=== PATIENT | male | born 1990 | race Caucasian/White ===

== ENCOUNTER 2016-10-16 09:32 | Emergency (ER) | payer SELFPAY ==
[2016-10-16 09:36] VITALS: BP 148/81
--- NOTE | 2016-10-16 09:45 | ER Document Report ---
ED General - General Chief Complaint: Ankle Injury Stated Complaint: ANKLE INJURY TRAVEL OUTSIDE OF THE [place] IN LAST 30 DAYS: No - HPI Patient complains to provider of: right ankle pain Notes: Patient is concerning he may dislocated fracture or sprain his right ankle yesterday. Patient states he was recommending Lotrimin a step wrong states he felt a pop. Patient currently plans of pain in the lateral malleolus. Patient was able to ambulate into the ER without difficulty wearing a sneaker. Patient was able to remove his sneaker without difficulty. - Related Data Allergies/Adverse Reactions: rondex Allergy (Mild, Uncoded 08/30/15 14:20) Past Medical History - Social History Smoking Status: Unknown if Ever Smoked Family History: Arthritis, CAD, Hyperlipidemia, Hypertension, Malignancy Pulmonary Medical History: Reports: Hx Asthma, Hx Bronchitis Renal/ Medical History: Reports: Hx Kidney Stones. Denies: Hx Peritoneal Dialysis Musculoskeltal Medical History: Reports Hx Musculoskeletal Deformity, Reports Hx Musculoskeletal Trauma Psychiatric Medical History: Reports: Hx Attention Deficit Hyperactivity Disorder Traumatic Medical History: Reports: Hx Fractures - right arm, Hx Traumatic Brain Injury Past Surgical History: Reports: Hx Abdominal Surgery - HERNIA, Hx Adenoidectomy , Hx Appendectomy, Hx Inguinal Hernia - right, Hx Neurologic Surgery, Hx Orthopedic Surgery, Hx Tonsillectomy - Immunizations Immunizations up to date: No Hx Diphtheria, Pertussis, Tetanus Vaccination: Yes Review of Systems - Review of Systems Constitutional: No symptoms reported EENT: No symptoms reported Cardiovascular: No symptoms reported Respiratory: No symptoms reported Gastrointestinal: No symptoms reported Genitourinary: No symptoms reported Male Genitourinary: No symptoms reported Musculoskeletal: Other - Ankle pain Skin: No symptoms reported Hematologic/Lymphatic: No symptoms reported Neurological/Psychological: No symptoms reported Physical Exam - Vital signs Vitals: Temp Pulse Resp BP Pulse Ox 98.8 F 81 18 148/81 H 98 10/16/16 09:34 10/16/16 09:34 10/16/16 09:34 10/16/16 09:34 10/16/16 09:34 Interpretation: Normal - General General appearance: Appears well, Alert - HEENT Head: Normocephalic, Atraumatic Eyes: Normal Pupils: PERRL - Respiratory Respiratory status: No respiratory distress Chest status: Nontender Breath sounds: Normal Chest palpation: Normal - Cardiovascular Rhythm: Regular Heart sounds: Normal auscultation Murmur: No - Abdominal Inspection: Normal Distension: No distension Bowel sounds: Normal Tenderness: Nontender Organomegaly: No organomegaly - Back Back: Normal, Nontender - Extremities General upper extremity: Normal inspection, Nontender, Normal color, Normal ROM , Normal temperature General lower extremity: Nontender, Normal color, Normal ROM, Normal temperature , Normal weight bearing. No: Normal inspection - Minimal swelling to the lateral malleolus. Refill sensation are intact distally. Patient was able to remove the shoe and sock without any difficulty., Lynsey's sign - Neurological Neuro grossly intact: Yes Cognition: Normal Orientation: AAOx4 [place] Coma Scale Eye Opening: Spontaneous Hollie Coma Scale Verbal: Oriented [place] Coma Scale Motor: Obeys Commands [place] Coma Scale Total: 15 Speech: Normal Motor strength normal: LUE, RUE, LLE, RLE Sensory: Normal - Psychological Associated symptoms: Normal affect, Normal mood - Skin Skin Temperature: Warm Skin Moisture: Dry Skin Color: Normal Course - Re-evaluation Re-evalutation: 10/16/16 09:42 Patient requesting x-ray. Will perform an x-ray more likely patient has make a sprain. X-rays negative patient will be discharged with a Denis wrap for pressure support Tylenol Motrin for pain control. 10/16/16 11:50 - Vital Signs Vital signs: Temp Pulse Resp BP Pulse Ox 98.8 F 81 18 148/81 H 98 10/16/16 09:34 10/16/16 09:34 10/16/16 09:34 10/16/16 09:34 10/16/16 09:34 Discharge - Discharge Clinical Impression: Right ankle sprain Qualifiers: Encounter type: initial encounter Involved ligament of ankle: unspecified ligament Qualified Code(s): S93.401A - Sprain of unspecified ligament of right ankle, initial encounter Condition: Good Disposition: HOME, SELF-CARE Instructions: Denis Wrap ([facility]), Sprained Ankle ([facility]) Additional Instructions: Take Tylenol Motrin for pain control. Return to the ER symptoms worsen. Please continue to wear the Denis wrap for support while walking around for the next 5 days. After that he may use as needed. Ice and elevate your injured ankle Prescriptions: Ibuprofen [Motrin 600 Mg Tablet] 600 mg PO TID #30 tablet
== END 2016-10-16 11:42 | disposition home or self-care (01) ==
LOC: ER 09:32
DX: S93.401A Sprain of unspecified ligament of right ankle, initial encounter (principal); W19.XXXA Unspecified fall, initial encounter; Y93.89 Activity, other specified; J45.909 Unspecified asthma, uncomplicated; Z88.8 Allergy status to other drugs, medicaments and biological substances
CPT/HCPCS: 99283

== ENCOUNTER 2016-10-27 10:11 | Emergency (ER) | payer SELFPAY ==
[2016-10-27] MEDS ORDERED: IBUPROFEN 800 MG TABLET PO ONE (10:42)
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
[2016-10-27 11:13] VITALS: BP 118/64
== END 2016-10-27 11:08 | disposition home or self-care (01) ==
LOC: ER 10:11
DX: M54.5 Low back pain (principal); G89.29 Other chronic pain; J45.909 Unspecified asthma, uncomplicated; F17.210 Nicotine dependence, cigarettes, uncomplicated; Z71.6 Tobacco abuse counseling; Z88.8 Allergy status to other drugs, medicaments and biological substances
CPT/HCPCS: 99283

== ENCOUNTER 2017-01-15 19:58 | Emergency (ER) | payer SELFPAY ==
[2017-01-15 20:12] VITALS: BP 135/80
--- NOTE | 2017-01-15 20:40 | ER Document Report ---
ED Neck/Back Problem - General Chief Complaint: Back Pain Stated Complaint: BACK PAIN Time Seen by Provider: 01/15/17 20:23 TRAVEL OUTSIDE OF THE [place] 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 denies: Worse Quality of pain: Achy Severity: Moderate Pain Level: 3 Recent injury: No Similar symptoms previously: Yes Recently seen / treated by doctor: No Notes: -UI, SI, SA - Related Data Allergies/Adverse Reactions: rondex Allergy (Mild, Uncoded 01/15/17 20:12) Past Medical History - Social History Smoking Status: Unknown if Ever Smoked Family History: Arthritis, CAD, Hyperlipidemia, Hypertension, Malignancy Patient has suicidal ideation: No Patient has homicidal ideation: No Pulmonary Medical History: Reports: Hx Asthma, Hx Bronchitis Renal/ Medical History: Reports: Hx Kidney Stones. Denies: Hx Peritoneal Dialysis Musculoskeltal Medical History: Reports Hx Musculoskeletal Deformity, Reports Hx Musculoskeletal Trauma Psychiatric Medical History: Reports: Hx Attention Deficit Hyperactivity Disorder Traumatic Medical History: Reports: Hx Fractures - right arm, Hx Traumatic Brain Injury Past Surgical History: Reports: Hx Abdominal Surgery - HERNIA, Hx Adenoidectomy , Hx Appendectomy, Hx Inguinal Hernia - right, Hx Neurologic Surgery, Hx Orthopedic Surgery, Hx Tonsillectomy - Immunizations Immunizations up to date: No Hx Diphtheria, Pertussis, Tetanus Vaccination: Yes Review of Systems - Review of Systems Constitutional: No symptoms reported Musculoskeletal: See HPI Neurological/Psychological: See HPI -: Yes All other systems reviewed and negative Physical Exam - Vital signs Vitals: Temp Pulse Resp BP Pulse Ox 99 F 76 12 135/80 H 98 01/15/17 20:08 01/15/17 20:08 01/15/17 20:08 01/15/17 20:08 01/15/17 20:08 - General General appearance: Appears well, Alert In distress: None - Cardiovascular Pulses: Normal: Radial, Dorsalis pedis Normal capillary refill: Yes - Back Back: Normal, Tender - right paraspinous musculature. No: Deformity/step-off, CVA tenderness, Vertebra tenderness, Scars, Scoliosis, Wounds - Extremities General upper extremity: Normal inspection, Nontender, Normal color, Normal ROM , Normal strength, Normal temperature, Other General lower extremity: Normal inspection, Nontender, Normal ROM, Normal strength, Normal temperature, Normal weight bearing - Neurological Neuro grossly intact: Yes Cognition: Normal Orientation: AAOx4 [place] Coma Scale Eye Opening: Spontaneous [place] Coma Scale Verbal: Oriented [place] Coma Scale Motor: Obeys Commands Hollie Coma Scale Total: 15 Speech: Normal Cranial nerves: Normal Cerebellar coordination: Normal Motor strength normal: LUE, RUE, LLE, RLE 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 No: Weakness Sensory: Normal - Skin Skin Temperature: Warm Skin Moisture: Dry Skin Color: Normal Skin Turgor: Elastic Course - Re-evaluation Re-evalutation: 01/15/17 21:40 The patient presents with low back pain without signs of spinal cord compression , cauda equina syndrome, infection, aneurysm, or other serious etiology. The patient is neurologically intact. Given the extremely low risk of these diagnoses further testing and evaluation for these possibilities does not appear to be indicated at this time. The patient has been instructed to return if the symptoms worsen or change in any way. - Vital Signs Vital signs: Temp Pulse Resp BP Pulse Ox 99 F 76 12 135/80 H 98 01/15/17 20:08 01/15/17 20:08 01/15/17 20:08 01/15/17 20:08 01/15/17 20:08 Discharge - Discharge Clinical Impression: Low back pain Qualifiers: Chronicity: chronic Back pain laterality: right Sciatica presence: without sciatica Qualified Code(s): M54.5 - Low back pain Condition: Good Disposition: HOME, SELF-CARE Instructions: Stretching Exercises for the Back ([facility]) Additional Instructions: LOW BACK PAIN: Three out of every four people will have an episode of disabling back pain during their lifetime. Most commonly the pain is due to straining of the muscles and ligaments in the low back. Usual treatment includes: (1) Rest on a firm surface. Avoid lying on your stomach. (2) Ice pack the painful area. After a few days, gentle heat may be used intermittently to relax the area, or ice packs can be continued. (3) Medication may be needed -- muscle relaxers and antiinflammatory medicines are commonly used. (4) As the back improves, exercises are prescribed to strengthen the back and abdominal muscles. Your doctor will advise you on the proper care for your back at each stage in your recovery. You may be better in a few days -- or healing may take several weeks. If new symptoms of a "herniated disc" (radiation of pain, numbness, or tingling down the back of the leg or weakness in the leg) occur, you should be re-examined. Further testing may be necessary. MUSCLE RELAXERS: Muscle relaxing medications are usually prescribed for acute muscle spasm or injury to the neck and back. They are often combined with antiinflammatory pain medication for increased relief. You may stop the muscle relaxer when the pain and stiffness have improved. Start the medication again if spasms recur. Muscle relaxers may cause drowsiness, especially with the first dose. Do not operate machinery or drive while under the effects of the medication. Most muscle relaxers last up to 24 hours. Do not combine the medication with alcohol. ICE PACKS: Apply ice packs frequently against the painful area. Many different schedules are recommended, such as "20 minutes on, 20 minutes off" or "one hour ice, two hours rest." If you need to work, you may need to go longer between ice treatments. You should plan to have the area ice packed AT LEAST one fourth of the time. The ice should be applied over the wrap, tape, or splint, or over a layer of cloth -- not directly against the skin. Some ice bags have a built-in cloth and can be put directly on the skin. WARM PACKS: After approximately two days, apply gentle heat (such as a heating pad or hot water bottle) for about 20 to 30 minutes about every two hours -- at least four times daily. Warmth and elevation will help you make a more rapid recovery , and will ease the pain considerably. Do not use HOT heat, and never apply heat for longer than 30 minutes. The continuous heat can invisibly damage skin and muscles -- even when no burn is seen on the surface. Damaged muscles can make you MORE sore. FOLLOW-UP CARE: If you have been referred to a physician for follow-up care, call the physician s office for an appointment as you were instructed or within the next two days. If you experience worsening or a significant change in your symptoms, notify the physician immediately or return to the Emergency Department at any time for re-evaluation. Prescriptions: Cyclobenzaprine HCl [Flexeril 10 mg Tablet] 10 mg PO TIDP PRN #15 tab PRN Reason: Ibuprofen [Motrin 800 mg Tablet] 800 mg PO Q8H PRN #30 tab PRN Reason: Forms: Special Work Note, Return to Work Referrals: BARRERA SPENCER MD [COMMUNITY BASED STAFF] - Follow up as needed
[2017-01-15] MEDS ORDERED: IBUPROFEN 800 MG TABLET PO ONE (20:41)
== END 2017-01-15 20:59 | disposition home or self-care (01) ==
LOC: ER 19:58
DX: M54.5 Low back pain (principal); G89.29 Other chronic pain; J45.909 Unspecified asthma, uncomplicated; Z88.8 Allergy status to other drugs, medicaments and biological substances
CPT/HCPCS: 99283

== ENCOUNTER 2017-05-22 07:05 | Emergency (ER) | payer SELFPAY ==
[2017-05-22] MEDS ORDERED: ONDANSETRON 4 MG TAB.RAPDIS PO ONE (07:40)
--- NOTE | 2017-05-22 08:09 | ER Document Report ---
ED GI/ - General Chief Complaint: Nausea/Vomiting/Diarrhea Stated Complaint: VOMITING Time Seen by Provider: 05/22/17 07:39 Notes: Patient is a 26-year-old male presents emergency department complaining of diarrhea for 1 week. Admits to dizziness and weakness this morning with one episode of emesis. He denies reading anything abnormal over the past 10 days. Denies any raw chicken. Denies any recent antibiotic use or hospital admission. Otherwise he denies any abdominal pain, fever, chills, headache, bright red blood per rectum, hematemesis, coffee-ground emesis, dark tarry stools. Denies any previous history of reflux, irritable bowel disease, Crohn's , ulcerative colitis. Previous appendectomy. He did not receive a flu vaccine this year. Patient works for [employer]. Current smoker. Admits to social alcohol on the weekends. Denies any drug use. TRAVEL OUTSIDE OF THE [place] IN LAST 30 DAYS: No - Related Data Allergies/Adverse Reactions: rondex Allergy (Mild, Uncoded 04/02/17 11:41) Past Medical History - Social History Smoking Status: Current Every Day Smoker Family History: Arthritis, CAD, Hyperlipidemia, Hypertension, Malignancy Pulmonary Medical History: Reports: Hx Asthma, Hx Bronchitis Renal/ Medical History: Reports: Hx Kidney Stones. Denies: Hx Peritoneal Dialysis Musculoskeltal Medical History: Reports Hx Musculoskeletal Deformity, Reports Hx Musculoskeletal Trauma Psychiatric Medical History: Reports: Hx Attention Deficit Hyperactivity Disorder Traumatic Medical History: Reports: Hx Fractures - right arm, Hx Traumatic Brain Injury Past Surgical History: Reports: Hx Abdominal Surgery - HERNIA, Hx Adenoidectomy , Hx Appendectomy, Hx Inguinal Hernia - right, Hx Neurologic Surgery, Hx Orthopedic Surgery, Hx Tonsillectomy - Immunizations Immunizations up to date: No Hx Diphtheria, Pertussis, Tetanus Vaccination: Yes Review of Systems - Review of Systems Constitutional: No symptoms reported EENT: No symptoms reported Cardiovascular: No symptoms reported Respiratory: No symptoms reported Gastrointestinal: See HPI Genitourinary: No symptoms reported -: Yes All other systems reviewed and negative Physical Exam - Vital signs Vitals: Temp Pulse Resp BP Pulse Ox 97.8 F 77 14 128/78 H 98 05/22/17 07:34 05/22/17 07:34 05/22/17 07:34 05/22/17 07:34 05/22/17 07:34 - Notes Notes: PHYSICAL EXAM GENERAL: Alert, interacts well. ENT: Oral mucosa moist, tongue midline. NECK: Full range of motion. Supple. Trachea midline. LUNGS: Clear to auscultation bilaterally, no wheezes, rales, or rhonchi. No respiratory distress. HEART: Regular rate and rhythm. No murmurs, gallops, or rubs. ABDOMEN: Soft, nondistended, nontender. No guarding, rebound, or rigidity.. Bowel sounds present in all 4 quadrants. EXTREMITIES: Moves all 4 extremities spontaneously. No edema, radial and dorsalis pedis pulses 2/4 bilaterally. No cyanosis. NEUROLOGICAL: Alert and oriented x4. Normal speech. PSYCH: Normal affect, normal mood. SKIN: Warm, dry, normal turgor. No rashes or lesions noted. Course - Re-evaluation Re-evalutation: 05/22/17 09:51 Patient is a 26-year-old male who is hemodynamically stable, no acute distress and afebrile. Presentation is consistent with gastrointestinal virus. Low clinical suspicion for any food poisoning given the length of symptoms, concern for C. difficile given negative past medical history with risk factors. Patient was not able to supply a sample for us in the emergency department. Flu was negative. Labs negative for any evidence of dehydration, electrolyte abnormalities, elevated liver panel, acute renal failure, leukocytosis or anemia. Patient tolerating p.o. without any difficulty and benign physical exam. Stable for discharge home. - Vital Signs Vital signs: Temp Pulse Resp BP Pulse Ox 98 F 74 17 125/70 97 05/22/17 10:38 05/22/17 10:38 05/22/17 10:38 05/22/17 10:38 05/22/17 10:38 - Laboratory Result Diagrams: 05/22/17 08:15 05/22/17 08:15 Laboratory results interpreted by me: 05/22/17 08:15 Plt Count 110 L Discharge - Discharge Clinical Impression: Diarrhea Qualifiers: Diarrhea type: unspecified type Qualified Code(s): R19.7 - Diarrhea, unspecified Condition: Good Disposition: HOME, SELF-CARE Additional Instructions: Your symptoms are likely due to a viral illness and should resolve in the next several days. You can take [id number] loperamide also known as Imodium as needed for diarrhea per box instructions. Continue to stay hydrated with plenty of solution such as Gatorade or Pedialyte. You are being prescribed Zofran to take as needed for nausea and vomiting. Please return if you develop severe abdominal pain, pass out, become unable to tolerate any oral fluids for 12 more hours, or any other symptoms that are concerning to you. Prescriptions: Ondansetron HCl [Zofran 4 mg Tablet] 1 - 2 tab PO Q4H PRN #15 tablet PRN Reason: Forms: Return to Work
[2017-05-22 08:42] LABS: ABSOLUTE EOSINOPHILS # (AUTO) 0.1 10^3/uL (0.0-0.6); ABSOLUTE LYMPHOCYTES (AUTO) 2.3 10^3/uL (0.5-4.7); ABSOLUTE MONOCYTES (AUTO) 0.4 10^3/uL (0.1-1.4); ABSOLUTE NEUT (AUTO) 3.6 10^3/uL (1.7-8.2); BASOPHILS % (AUTO) 0.7 % (0-2); EOSINOPHILS % (AUTO) 1.5 % (0-6); HEMATOCRIT 43.9 % (37.9-51.0); HEMOGLOBIN 15.4 g/dL (13.5-17.0); HGB HCT DIFFERENCE 2.3; LYMPHOCYTES % (AUTO) 35.6 % (13-45); MEAN CORPUSCULAR HEMOGLOBIN 31.7 pg (27.0-33.4); MEAN CORPUSCULAR VOLUME 91 fl (80-97); RED BLOOD COUNT 4.84 10^6/uL (4.35-5.55); RED CELL DISTRIBUTION WIDTH 13.2 % (11.5-14.0); SEGMENTED NEUTROPHILS % (AUTO) 56.2 % (42-78); WHITE BLOOD COUNT 6.4 10^3/uL (4.0-10.5)
[2017-05-22 08:54] LABS: BLOOD UREA NITROGEN 8 mg/dL (7-20); CALCIUM 9.3 mg/dL (8.4-10.2); CREATININE RESULT 0.75 mg/dL (0.52-1.25); GLUCOSE 102 mg/dL (75-110)
[2017-05-22 08:55] LABS: ANION GAP 11 (5-19); CARBON DIOXIDE 25 mmol/L (22-30); CHLORIDE 106 mmol/L (98-107); POTASSIUM 4.6 mmol/L (3.6-5.0)
[2017-05-22 09:22] LABS: APPEARANCE,URINE CLEAR; BILIRUBIN,URINE NEGATIVE (NEGATIVE); GLUCOSE, URINE NEGATIVE (NEGATIVE); KETONES,URINE NEGATIVE (NEGATIVE); LEUKOCYTE ESTERASE,URINE NEGATIVE (NEGATIVE); NITRITE,URINE NEGATIVE (NEGATIVE); PROTEIN,URINE NEGATIVE (NEGATIVE); URINE SPECIFIC GRAVITY 1.006; UROBILINOGEN,URINE NEGATIVE mg/dL (<2.0)
[2017-05-22 10:39] VITALS: BP 125/70
== END 2017-05-22 10:30 | disposition home or self-care (01) ==
LOC: ER 07:05
DX: R19.7 Diarrhea, unspecified (principal); R42 Dizziness and giddiness; R53.1 Weakness; R11.2 Nausea with vomiting, unspecified; F17.200 Nicotine dependence, unspecified, uncomplicated; J45.909 Unspecified asthma, uncomplicated; Z88.8 Allergy status to other drugs, medicaments and biological substances
CPT/HCPCS: 99283; 36415; 83690; 85025; 80048; 81001; 87804; S0119

== ENCOUNTER 2017-08-22 09:48 | Emergency (ER) | payer SELFPAY ==
--- NOTE | 2017-08-22 10:09 | ER Document Report ---
ED Extremity Problem, Lower - General Chief Complaint: Knee Pain Stated Complaint: KNEE PAIN Time Seen by Provider: 08/22/17 10:00 Information source: Patient Notes: 26-year-old male who states around 1 month ago he was stepping off a truck and he twisted his left foot causing him to fall on his right knee. He states he has had some intermittent pain to the right knee since that time. He denies any obvious displacement during the initial incident. He denies any weakness or numbness distally to the knee. Patient states that the pain mostly is exacerbated when he bumps his right knee into another object. TRAVEL OUTSIDE OF THE [place] IN LAST 30 DAYS: No - HPI Patient complains to provider of: Pain Location: Knee Occurred: Other - See above Where: Outdoors Onset/Duration: Sudden Quality of pain: Achy Severity: Mild Pain Level: 1 Context: Other - See above Recent injury: Yes Associated symptoms: Other - See above Exacerbated by: Other - See above Relieved by: Nothing - Related Data Allergies/Adverse Reactions: rondex Allergy (Mild, Uncoded 04/02/17 11:41) Past Medical History - Social History Smoking Status: Unknown if Ever Smoked Cigarette use (# per day): No Chew tobacco use (# tins/day): No Smoking Education Provided: No Frequency of alcohol use: Rare Drug Abuse: None Family History: Arthritis, CAD, Hyperlipidemia, Hypertension, Malignancy Pulmonary Medical History: Reports: Hx Asthma, Hx Bronchitis Renal/ Medical History: Reports: Hx Kidney Stones. Denies: Hx Peritoneal Dialysis Musculoskeltal Medical History: Reports Hx Musculoskeletal Deformity, Reports Hx Musculoskeletal Trauma Psychiatric Medical History: Reports: Hx Attention Deficit Hyperactivity Disorder Traumatic Medical History: Reports: Hx Fractures - right arm, Hx Traumatic Brain Injury Past Surgical History: Reports: Hx Abdominal Surgery - HERNIA, Hx Adenoidectomy , Hx Appendectomy, Hx Inguinal Hernia - right, Hx Neurologic Surgery, Hx Orthopedic Surgery, Hx Tonsillectomy - Immunizations Immunizations up to date: No Hx Diphtheria, Pertussis, Tetanus Vaccination: Yes Physical Exam - Vital signs Vitals: Temp Pulse Resp BP Pulse Ox 97.6 F 67 16 119/77 99 08/22/17 09:51 08/22/17 09:51 08/22/17 09:51 08/22/17 09:51 08/22/17 09:51 Notes: Reviewed vital signs and nursing note as charted by RN. CONSTITUTIONAL: Alert and oriented and responds appropriately to questions. Well -appearing; well-nourished EXT: Normal ROM of the right knee. No obvious swelling or discoloration. No obvious ligamentous laxity. No clicking with full range of motion. Neurovascularly intact distally Course - Re-evaluation Re-evalutation: 08/22/17 10:09 Given the history and physical we will obtain an x-ray of the right knee. If this is unremarkable for an acute fracture we will discharge the patient home with strict return precautions and orthopedic follow-up for possible outpatient MRI/reevaluation. I do believe an acute knee dislocation or intra-articular infection to be extraordinarily unlikely. 08/22/17 10:57 X-ray as recorded. Patient has refused crutches. I would discharge the patient home with strict return precautions and follow-up as an outpatient with the orthopedic surgery team. - Vital Signs Vital signs: Temp Pulse Resp BP Pulse Ox 97.6 F 67 16 119/77 99 08/22/17 09:51 08/22/17 09:51 08/22/17 09:51 08/22/17 09:51 08/22/17 09:51 Discharge - Discharge Clinical Impression: Right knee pain Qualifiers: Chronicity: acute Qualified Code(s): M25.561 - Pain in right knee Condition: Good Disposition: HOME, SELF-CARE Additional Instructions: Come back immediately for any increased pain, swelling, calf pain or leg swelling, or any other acute problems. Please follow-up with orthopedics as we have discussed. Referrals: ELLA BLACKMAN DO [ACTIVE STAFF] - Follow up as needed
--- NOTE | 2017-08-22 10:52 | RADIOLOGY REPORT (SQ) ---
EXAM DESCRIPTION: KNEE RIGHT 4 VIEWS COMPLETED DATE/TIME: 08/22/2017 10:38 am REASON FOR STUDY: 42, right knee COMPARISON: None. NUMBER OF VIEWS: Four views. TECHNIQUE: AP, lateral, and both oblique radiographic images acquired of the right knee. LIMITATIONS: None. FINDINGS: MINERALIZATION: Normal. BONES: No acute fracture or dislocation. No worrisome bone lesions. No significant osteophytes. JOINT: No effusion. No chondrocalcinosis. OTHER: No other significant finding. IMPRESSION: NEGATIVE STUDY OF THE RIGHT KNEE. NO RADIOGRAPHIC EVIDENCE OF ACUTE INJURY. NO EXPLANATI ON FOR PAIN. TECHNICAL DOCUMENTATION: JOB ID: [id number] [employer]- All Rights Reserved Reading location - IP/workstation name: [email or web address]
[2017-08-22 11:13] VITALS: BP 120/76
== END 2017-08-22 11:05 | disposition home or self-care (01) ==
LOC: ER 09:48
DX: M25.561 Pain in right knee (principal); W17.89XA Other fall from one level to another, initial encounter; Y93.89 Activity, other specified
CPT/HCPCS: 99283

== ENCOUNTER 2017-08-23 08:58 | Emergency (ER) | payer SELFPAY ==
[2017-08-23] MEDS ORDERED: ONDANSETRON 4 MG TAB.RAPDIS PO ONE (09:28)
--- NOTE | 2017-08-23 09:33 | ER Document Report ---
ED GI/ - General Chief Complaint: Possible Kidney Stone Stated Complaint: FLANK PAIN Time Seen by Provider: 08/23/17 09:19 Notes: The patient is a 26-year-old male, past medical history prior kidney stones, appendectomy, presents with severe left flank pain radiating into his groin earlier this morning that felt similar to his prior kidney stones. When he arrived to the ER, he urinated and felt the pain immediately go away. He feels much better and is having no pain at this time. He is only complaining of nausea. Patient is usually always able to pass his kidney stones. He denies fevers, hematuria, vomiting, diarrhea, constipation or rash. TRAVEL OUTSIDE OF THE [place] IN LAST 30 DAYS: No - Related Data Allergies/Adverse Reactions: rondex Allergy (Mild, Uncoded 04/02/17 11:41) Past Medical History - General Information source: Patient - Social History Smoking Status: Current Every Day Smoker Family History: Arthritis, CAD, Hyperlipidemia, Hypertension, Malignancy Pulmonary Medical History: Reports: Hx Asthma, Hx Bronchitis Renal/ Medical History: Reports: Hx Kidney Stones. Denies: Hx Peritoneal Dialysis Musculoskeltal Medical History: Reports Hx Musculoskeletal Deformity, Reports Hx Musculoskeletal Trauma Psychiatric Medical History: Reports: Hx Attention Deficit Hyperactivity Disorder Traumatic Medical History: Reports: Hx Fractures - right arm, Hx Traumatic Brain Injury Past Surgical History: Reports: Hx Abdominal Surgery - HERNIA, Hx Adenoidectomy , Hx Appendectomy, Hx Inguinal Hernia - right, Hx Neurologic Surgery, Hx Orthopedic Surgery, Hx Tonsillectomy - Immunizations Immunizations up to date: No Hx Diphtheria, Pertussis, Tetanus Vaccination: Yes Review of Systems - Review of Systems Notes: REVIEW OF SYSTEMS: CONSTITUTIONAL: -fevers, -chills EENT: -eye pain, -difficulty swallowing, -nasal congestion CARDIOVASCULAR: -chest pain, -syncope. RESPIRATORY: -cough, -SOB GASTROINTESTINAL: -abdominal pain, -nausea, -vomiting, -diarrhea GENITOURINARY: -dysuria, -hematuria MUSCULOSKELETAL: +left flank pain, -neck pain SKIN: -rash or skin lesions. HEMATOLOGIC: -easy bruising or bleeding. LYMPHATIC: -swollen, enlarged glands. NEUROLOGICAL: -altered mental status or loss of consciousness, -headache, - neurologic symptoms PSYCHIATRIC: -anxiety, -depression. ALL OTHER SYSTEMS REVIEWED AND NEGATIVE. Physical Exam - Vital signs Vitals: Temp Pulse Resp BP Pulse Ox 97.6 F 76 16 128/87 H 98 08/23/17 09:09 08/23/17 09:09 08/23/17 09:09 08/23/17 09:09 08/23/17 09:09 - Notes Notes: PHYSICAL EXAMINATION: GENERAL: Well-appearing, well-nourished and in no acute distress. HEAD: Atraumatic, normocephalic. EYES: Pupils equal round and reactive to light, extraocular movements intact, sclera anicteric, conjunctiva are normal. ENT: nares patent, oropharynx clear without exudates. Moist mucous membranes. NECK: Normal range of motion, supple without lymphadenopathy LUNGS: Breath sounds clear to auscultation bilaterally and equal. No wheezes rales or rhonchi. HEART: Regular rate and rhythm without murmurs ABDOMEN: Soft, nontender, normoactive bowel sounds. No guarding, no rebound. No masses appreciated. EXTREMITIES: Normal range of motion, no pitting or edema. No cyanosis. NEUROLOGICAL: Cranial nerves grossly intact. Normal speech, normal gait. Normal sensory and motor exams. PSYCH: Normal mood, normal affect. SKIN: Warm, Dry, normal turgor, no rashes or lesions noted. Course - Re-evaluation Re-evalutation: Patient with left flank pain that suddenly resolved when he arrived to the ED. Bedside ultrasound does not show hydronephrosis. He has a 2 mm stne in his bladder. No stone visualized in kidneys. Urinalysis shows no evidence of a UTI. The kidney stone passed into his bladder and told him that it may be painful when he passes it through his urethra. Given very strict return precautions and he understands. - Vital Signs Vital signs: Temp Pulse Resp BP Pulse Ox 97.6 F 76 16 128/87 H 98 08/23/17 09:09 08/23/17 09:09 08/23/17 09:09 08/23/17 09:09 08/23/17 09:09 Discharge - Discharge Clinical Impression: Renal colic on left side Condition: Stable Disposition: HOME, SELF-CARE Additional Instructions: KIDNEY STONE: You are passing or have passed a kidney stone. These stones are usually due to increased calcium or uric acid concentrations in your urine. Stones within the kidney itself are not painful. The pain occurs as the stone leaves the kidney to pass down the long tube, called the ureter, leading to the bladder. If the stone is small, it will usually pass by itself. Most patients can pass the stone at home. You will usually receive medications for pain, nausea or vomiting, and sometimes a medication to assist in passing the kidney stone. However, if the pain is very severe or if vomiting prevents you from taking oral pain medications, you may need to return for further treatment. Drink three or four quarts of fluids per day. You will be given pain medication (if needed) and urine strainers. Strain all your urine to see if the stone passes. If your doctor has asked you to bring the stone in for analysis, return with the stone once it has passed. Return if pain or vomiting become severe, if you develop a high fever, if you are unable to pass your urine, or if other unusual symptoms occur. ANTINAUSEA MEDICATION: You have been given a medication to suppress nausea and vomiting. This type of medication can be given as a shot, pill, or suppository. It will usually last for many hours. Pills and shots usually last six to eight hours, suppositories last about 12 hours. For the typical illness, only one or two doses of the medication may be necessary. Mild lightheadedness may occur. This type of medicine can cause drowsiness. Do not drive or operate dangerous machinery while under its influence. Do not mix with alcohol. See your doctor at once if you have muscle spasms or tightness, or uncontrollable motions (particularly of the neck, mouth, or jaw). Persistent vomiting or severe lightheadedness should also be evaluated by the physician. FOLLOW-UP CARE: If you have been referred to a physician for follow-up care, call the physician s office for an appointment as you were instructed or within the next two days. If you experience worsening or a significant change in your symptoms, notify the physician immediately or return to the Emergency Department at any time for re-evaluation. Prescriptions: Ondansetron [Zofran Odt 4 mg Tablet] 1 - 2 tab PO Q4H PRN #10 tab.rapdis PRN Reason: For Nausea/Vomiting Referrals: [facility] [Provider Group] - Follow up as needed
[2017-08-23] MEDS ORDERED: KETOROLAC TROMETHAMINE 60 MG/2 ML SDV IM ONE (09:36)
[2017-08-23 09:57] LABS: APPEARANCE,URINE SLIGHTLY-CLOUDY; BILIRUBIN,URINE NEGATIVE (NEGATIVE); COLOR,URINE YELLOW; GLUCOSE, URINE NEGATIVE (NEGATIVE); KETONES,URINE NEGATIVE (NEGATIVE); LEUKOCYTE ESTERASE,URINE NEGATIVE (NEGATIVE); NITRITE,URINE NEGATIVE (NEGATIVE); PROTEIN,URINE NEGATIVE (NEGATIVE); URINE SPECIFIC GRAVITY 1.018; UROBILINOGEN,URINE NEGATIVE mg/dL (<2.0)
[2017-08-23 10:49] VITALS: BP 128/89
== END 2017-08-23 10:47 | disposition home or self-care (01) ==
LOC: ER 08:58
DX: N21.0 Calculus in bladder (principal); R11.0 Nausea; F17.200 Nicotine dependence, unspecified, uncomplicated; J45.909 Unspecified asthma, uncomplicated; Z90.49 Acquired absence of other specified parts of digestive tract
CPT/HCPCS: 99284; 96372; 81001; J1885; S0119

== ENCOUNTER 2017-09-25 07:50 | Emergency (ER) | payer SELFPAY ==
[2017-09-25 07:58] VITALS: BP 125/63
[2017-09-25] MEDS ORDERED: ONDANSETRON 4 MG TAB.RAPDIS PO ONE (08:22)
[2017-09-25] MEDS ORDERED: FAMOTIDINE 20 MG TABLET PO ONE (08:39)
[2017-09-25] MEDS ORDERED: LOPERAMIDE HCL 2 MG CAPSULE PO ONE (08:40)
--- NOTE | 2017-09-25 08:41 | ER Document Report ---
ED General - General Chief Complaint: Vomiting Stated Complaint: VOMITING Time Seen by Provider: 09/25/17 08:07 Mode of Arrival: Ambulatory Information source: Patient Notes: 26-year-old male with no reported past medical history presents with complaint of nausea, vomiting, diarrhea. Patient states that symptoms started yesterday. He states that he has had 3 episodes of nonbilious nonbloody vomiting this morning and 3 episodes of nonbloody diarrhea. Patient denies any fever, chills , chest pain, shortness of breath, abdominal pain, back pain, dysuria, hematuria , rash. He denies sick contacts. TRAVEL OUTSIDE OF THE [place] IN LAST 30 DAYS: No - HPI Onset: Yesterday Onset/Duration: Sudden Quality of pain: No pain Associated symptoms: Diarrhea, Nausea, Vomiting Exacerbated by: Denies Relieved by: Denies Similar symptoms previously: Yes Recently seen / treated by doctor: No - Related Data Allergies/Adverse Reactions: rondex Allergy (Mild, Uncoded 04/02/17 11:41) Past Medical History - General Information source: Patient - Social History Smoking Status: Current Every Day Smoker Frequency of alcohol use: Occasional Drug Abuse: None Lives with: Spouse/Significant other Family History: Arthritis, CAD, Hyperlipidemia, Hypertension, Malignancy Patient has suicidal ideation: No Patient has homicidal ideation: No Pulmonary Medical History: Reports: Hx Asthma, Hx Bronchitis Renal/ Medical History: Reports: Hx Kidney Stones. Denies: Hx Peritoneal Dialysis Musculoskeltal Medical History: Reports Hx Musculoskeletal Deformity, Reports Hx Musculoskeletal Trauma Psychiatric Medical History: Reports: Hx Attention Deficit Hyperactivity Disorder Traumatic Medical History: Reports: Hx Fractures - right arm, Hx Traumatic Brain Injury Past Surgical History: Reports: Hx Abdominal Surgery - HERNIA, Hx Adenoidectomy , Hx Appendectomy, Hx Inguinal Hernia - right, Hx Neurologic Surgery, Hx Orthopedic Surgery, Hx Tonsillectomy - Immunizations Immunizations up to date: No Hx Diphtheria, Pertussis, Tetanus Vaccination: Yes Review of Systems - Review of Systems Notes: Patient denies any fever, chills, chest pain, shortness of breath, abdominal pain, back pain, dysuria, hematuria, rash. He denies sick contacts. Metastases to nausea, vomiting, diarrhea. Physical Exam - Vital signs Vitals: Temp Pulse Resp BP Pulse Ox 97.9 F 73 18 125/63 98 09/25/17 07:57 09/25/17 07:57 09/25/17 07:57 09/25/17 07:57 09/25/17 07:57 Interpretation: Normal. No: Hypotensive, Hypertensive, Hypoxic, Tachypneic, Febrile - Notes Notes: PHYSICAL EXAMINATION: GENERAL: Well-appearing, well-nourished and in no acute distress. HEAD: Atraumatic, normocephalic. EYES: Pupils equal round and reactive to light, extraocular movements intact, sclera anicteric, conjunctiva are normal. ENT: Nares patent, oropharynx clear without exudates. Moist mucous membranes. NECK: Normal range of motion, supple without lymphadenopathy LUNGS: Breath sounds clear to auscultation bilaterally and equal. No wheezes rales or rhonchi. HEART: Regular rate and rhythm without murmurs ABDOMEN: Soft, nontender, nondistended abdomen. No guarding, no rebound. No masses appreciated. Musculoskeletal: Normal range of motion, no pitting or edema. No cyanosis. NEUROLOGICAL: Cranial nerves grossly intact. Normal speech, normal gait. Normal sensory, motor exams PSYCH: Normal mood, normal affect. SKIN: Warm, Dry, normal turgor, no rashes or lesions noted. Course - Re-evaluation Re-evalutation: 09/25/17 10:39 26-year-old male presents with complaint of 1 day of nausea, vomiting and diarrhea. He denies any abdominal pain. Vital signs stable upon arrival. Patient does not appear toxic or dehydrated. He was provided Zofran and Pepcid and was able to tolerate fluids prior to discharge. Patient was discharged home in stable condition with recommendation to follow-up with his primary care physician as needed or return if vomiting persists and he is unable to tolerate fluids. - Vital Signs Vital signs: Temp Pulse Resp BP Pulse Ox 97.9 F 73 18 125/63 98 09/25/17 07:57 09/25/17 07:57 09/25/17 07:57 09/25/17 07:57 09/25/17 07:57 Discharge - Discharge Clinical Impression: Nausea vomiting and diarrhea Condition: Good Disposition: HOME, SELF-CARE Instructions: Antinausea Medication ([facility]), Diarrhea, Nonspecific ([facility]), Vomiting ([facility]) Forms: Smoking Cessation Education, Return to Work Referrals: CHERRY HERRERA MD [ACTIVE STAFF] - Follow up as needed
== END 2017-09-25 09:15 | disposition home or self-care (01) ==
LOC: ER 07:50
DX: R11.2 Nausea with vomiting, unspecified (principal); R19.7 Diarrhea, unspecified; J45.909 Unspecified asthma, uncomplicated; F17.200 Nicotine dependence, unspecified, uncomplicated; Z88.8 Allergy status to other drugs, medicaments and biological substances
CPT/HCPCS: 99283; S0119

== ENCOUNTER 2017-10-24 09:51 | Emergency (ER) | payer OTHER ==
[2017-10-24 10:04] VITALS: BP 122/69
[2017-10-24] MEDS ORDERED: ONDANSETRON 4 MG TAB.RAPDIS PO ONE (10:14)
--- NOTE | 2017-10-24 10:20 | ER Document Report ---
ED General - General Chief Complaint: Nausea/Vomiting/Diarrhea Stated Complaint: STOMACH PAIN Time Seen by Provider: 10/24/17 10:07 Notes: 26-year-old male here with complaints of nausea vomiting diarrhea that started this morning. He has had some abdominal cramping. His kids are sick with the same thing. He has not tried anything for the symptoms. Denies fevers chills dysuria hematuria frequency. He does not remember eating anything that may have made him sick with the symptoms. TRAVEL OUTSIDE OF THE [place] IN LAST 30 DAYS: No - Related Data Allergies/Adverse Reactions: rondex Allergy (Mild, Uncoded 10/24/17 09:56) Past Medical History - Social History Smoking Status: Unknown if Ever Smoked Family History: Arthritis, CAD, Hyperlipidemia, Hypertension, Malignancy Pulmonary Medical History: Reports: Hx Asthma, Hx Bronchitis Renal/ Medical History: Reports: Hx Kidney Stones. Denies: Hx Peritoneal Dialysis Musculoskeltal Medical History: Reports Hx Musculoskeletal Deformity, Reports Hx Musculoskeletal Trauma Psychiatric Medical History: Reports: Hx Attention Deficit Hyperactivity Disorder Traumatic Medical History: Reports: Hx Fractures - right arm, Hx Traumatic Brain Injury Past Surgical History: Reports: Hx Abdominal Surgery - HERNIA, Hx Adenoidectomy , Hx Appendectomy, Hx Inguinal Hernia - right, Hx Neurologic Surgery, Hx Orthopedic Surgery, Hx Tonsillectomy - Immunizations Immunizations up to date: No Hx Diphtheria, Pertussis, Tetanus Vaccination: Yes Review of Systems - Review of Systems Notes: See history of present illness for pertinent positive review of systems; otherwise all review of systems have been reviewed and are negative Physical Exam - Vital signs Vitals: Temp Pulse Resp BP Pulse Ox 99.0 F 73 22 H 122/69 96 10/24/17 10:02 10/24/17 10:02 10/24/17 10:02 10/24/17 10:02 10/24/17 10:02 - Notes Notes: PHYSICAL EXAMINATION: GENERAL: Well-appearing and in no acute distress. HEAD: Atraumatic, normocephalic. EYES: Pupils equal round and reactive to light, extraocular movements intact, sclera anicteric, conjunctiva are normal. ENT: nares patent, oropharynx clear without exudates. Moist mucous membranes. NECK: Normal range of motion, supple without lymphadenopathy LUNGS: CTAB and equal. No wheezes rales or rhonchi. HEART: Regular rate and rhythm without murmurs ABDOMEN: Soft, no tenderness. No facial grimacing/wincing upon palpation. No guarding, no rebound. EXTREMITIES: Normal range of motion, no pitting edema. No cyanosis. NEUROLOGICAL: Cranial nerves grossly intact. Normal sensory/motor exams. PSYCH: Normal mood, normal affect. SKIN: Warm, Dry, normal turgor, no rashes or lesions noted Course - Re-evaluation Re-evalutation: 10/24/17 10:24 MEDICAL DECISION MAKING: Concern for gastrointestinal infection, most likely viral Dose of Zofran here and patient states he already has plenty of Zofran at home from his kids being sick I will give him a prescription for Phenergan suppositories as a backup plan Instructed patient on fever control with Tylenol and/or (if applicable) Motrin Also discussed keeping hydrated with water or Gatorade/Pedialyte Instructed follow-up PCP next day or few Patient understands and agrees to the plan of care - Vital Signs Vital signs: Temp Pulse Resp BP Pulse Ox 99.0 F 73 22 H 122/69 96 10/24/17 10:02 10/24/17 10:02 10/24/17 10:02 10/24/17 10:02 10/24/17 10:02 Discharge - Discharge Clinical Impression: Nausea vomiting and diarrhea Condition: Good Disposition: HOME, SELF-CARE Additional Instructions: You were seen in the emergency department at [facility]. You likely have a gastrointestinal infection, most likely viral. Use Motrin and/or Tylenol for fever control. Use the Zofran you have at home for nausea (this will not make you sleepy). If this is not working, use the Phenergan suppositories I have prescribed (this WILL make you sleepy). Stay hydrated. Please followup with your primary physician in the next few days for further management/evaluation. Please return to the emergency department for worsening of symptoms or any symptom that you deem to be concerning or life-threatening. Thank you for allowing us to be part of your care. This is your school/work note for your Emergency Department evaluation today. Prescriptions: Promethazine HCl [Phenergan 25 mg Supp.rect] 1 supp UT Q6H #12 supp.rect
== END 2017-10-24 10:19 | disposition home or self-care (01) ==
LOC: ER 09:51
DX: R11.2 Nausea with vomiting, unspecified (principal); R19.7 Diarrhea, unspecified
CPT/HCPCS: 99283; S0119

== ENCOUNTER 2017-11-03 06:16 | Emergency (ER) | payer OTHER ==
[2017-11-03 06:23] VITALS: BP 121/79
--- NOTE | 2017-11-03 06:48 | RADIOLOGY REPORT (SQ) ---
EXAM DESCRIPTION: 4 views of the right knee CLINICAL HISTORY: PAIN COMPARISON: None. FINDINGS: 4 views of the right knee. No acute fracture or dislocation. Normal osseous mineralization. No joint effusion. IMPRESSION: No acute fracture or dislocation.
--- NOTE | 2017-11-03 07:24 | ER Document Report ---
HPI - HPI Patient complains to provider of: right knee Onset: This morning Onset/Duration: Sudden Quality of pain: Achy Severity: Severe Pain Level: 4 Context: Patient presents to the emergency department with complaints of right knee pain. Patient reports he rolled his knee this morning. Reports he has injured his knee in the past but denies surgery. Denies pain when walking. Declines pain medication. Reports he has been told he needs to have MRI of the knee. No reports of any other symptoms such as fever nausea vomiting diarrhea. 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 Denies: Hx Peritoneal Dialysis Musculoskeltal Medical History: Reports Hx Musculoskeletal Deformity, Reports Hx Musculoskeletal Trauma Psychiatric Medical History: Reports: Hx Attention Deficit Hyperactivity Disorder Traumatic Medical History: Reports: Hx Fractures - right arm, Hx Traumatic Brain Injury Past Surgical History: Reports: Hx Abdominal Surgery - HERNIA, Hx Adenoidectomy , Hx Appendectomy, Hx Inguinal Hernia - right, Hx Neurologic Surgery, Hx Orthopedic Surgery, Hx Tonsillectomy - Immunizations Immunizations up to date: No Hx Diphtheria, Pertussis, Tetanus Vaccination: Yes Vertical Provider Document - CONSTITUTIONAL Agree With Documented VS: Yes Exam Limitations: No Limitations General Appearance: WD/WN, No Apparent Distress - INFECTION CONTROL TRAVEL OUTSIDE OF THE [place] IN LAST 30 DAYS: No - HEENT HEENT: Atraumatic, Normocephalic - NECK Neck: Supple - RESPIRATORY Respiratory: No Respiratory Distress - CARDIOVASCULAR Cardiovascular: Regular Rate - MUSCULOSKELETAL/EXTREMETIES Musculoskeletal/Extremeties: MAEW, FROM, Non-Tender - Patient denies pain to touch. Patient stands up extends/ flexes knee without problems. No erythema no obvious deformity no swelling noted. Declines crutches, declines pain medication - NEURO Level of Consciousness: Awake, Alert, Appropriate Motor/Sensory: No Motor Deficit - DERM Integumentary: Warm, Dry Course - Re-evaluation Re-evalutation: 11/03/17 07:30 Patient reports he has been connected with the primary care provider by this facility. Patient reports he just has not followed up. He declines pain medication. Declines splint or crutches. Instructed on rest ice elevation and ibuprofen for pain . Patient was instructed to return to the emergency department for any further concerns. - Vital Signs Vital signs: Temp Pulse Resp BP Pulse Ox 97.8 F 84 17 121/79 96 11/03/17 06:17 11/03/17 06:17 11/03/17 06:17 11/03/17 06:17 11/03/17 06:17 - Diagnostic Test Radiology reviewed: Image reviewed, Reports reviewed - Diagnostic report text EXAM DESCRIPTION: 4 views of the right knee CLINICAL HISTORY: PAIN COMPARISON: None. FINDINGS: 4 views of the right knee. No acute fracture or dislocation. Normal osseous mineralization. No joint effusion. IMPRESSION: No acute fracture or dislocation. Dictated by: IVANIA GIRALDO DO Discharge - Discharge Clinical Impression: Knee pain, right Qualifiers: Chronicity: acute Qualified Code(s): M25.561 - Pain in right knee Condition: Stable Disposition: HOME, SELF-CARE Instructions: Use of [id number] Ibuprofen ([facility]), Ice & Elevation ([facility]) Additional Instructions: *You have been evaluated for an right knee pain *Rest/Ice/Elevate your knee *Follow up with orthopedics for full evaluation within one week- call for an appointment *Take ibuprofen as indicated *Return to ED for worsening condition, changes, needs Forms: Return to Work
== END 2017-11-03 07:47 | disposition home or self-care (01) ==
LOC: ER 06:16
DX: M25.561 Pain in right knee (principal); J45.909 Unspecified asthma, uncomplicated
CPT/HCPCS: 99283

== ENCOUNTER 2017-11-06 09:31 | Emergency (ER) | payer OTHER ==
--- NOTE | 2017-11-06 09:56 | ER Document Report ---
ED General - General Chief Complaint: Abdominal Pain Stated Complaint: RIGHT SIDE PAIN Time Seen by Provider: 11/06/17 09:47 TRAVEL OUTSIDE OF THE [place] IN LAST 30 DAYS: No - HPI Notes: Pleasant 27-year-old man presents 2 years after appendix surgery right lower quadrant. He has had intermittent pain at the site for a long time. Most recent bout started 3 months ago has continued to be intermittent pain right lower quadrant. This morning at work she had another episode of sharp pain that almost took him to his knees. Pain was 10/10 sharp in nature without radiation nothing made the pain better or worse lasted about 5 minutes. 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 Will need a work note. Denies fever all other symptoms. - Related Data Allergies/Adverse Reactions: rondex Allergy (Mild, Uncoded 11/06/17 09:31) Past Medical History - Social History Smoking Status: Current Every Day Smoker Frequency of alcohol use: Social Drug Abuse: None Family History: Arthritis, CAD, Hyperlipidemia, Hypertension, Malignancy Patient has suicidal ideation: No Patient has homicidal ideation: No Pulmonary Medical History: Reports: Hx Asthma, Hx Bronchitis Renal/ Medical History: Reports: Hx Kidney Stones. Denies: Hx Peritoneal Dialysis Musculoskeltal Medical History: Reports Hx Musculoskeletal Deformity, Reports Hx Musculoskeletal Trauma Psychiatric Medical History: Reports: Hx Attention Deficit Hyperactivity Disorder Traumatic Medical History: Reports: Hx Fractures - right arm, Hx Traumatic Brain Injury Past Surgical History: Reports: Hx Abdominal Surgery - HERNIA, Hx Adenoidectomy , Hx Appendectomy, Hx Inguinal Hernia - right, Hx Neurologic Surgery, Hx Orthopedic Surgery, Hx Tonsillectomy - Immunizations Immunizations up to date: No Hx Diphtheria, Pertussis, Tetanus Vaccination: Yes Review of Systems - Review of Systems Notes: REVIEW OF SYSTEMS: CONSTITUTIONAL: -fevers, -chills EENT: -eye pain, -difficulty swallowing, -nasal congestion CARDIOVASCULAR: -chest pain, -syncope. RESPIRATORY: -cough, -SOB GASTROINTESTINAL: abdominal pain, -nausea, -vomiting, -diarrhea GENITOURINARY: -dysuria, -hematuria MUSCULOSKELETAL: -back pain, -neck pain SKIN: -rash or skin lesions. HEMATOLOGIC: -easy bruising or bleeding. LYMPHATIC: -swollen, enlarged glands. NEUROLOGICAL: -altered mental status or loss of consciousness, -headache, - neurologic symptoms PSYCHIATRIC: -anxiety, -depression. ALL OTHER SYSTEMS REVIEWED AND NEGATIVE. Physical Exam - Vital signs Vitals: Temp Pulse Resp BP Pulse Ox 98.1 F 81 24 H 130/73 H 97 11/06/17 09:34 11/06/17 09:34 11/06/17 09:34 11/06/17 09:34 11/06/17 09:34 - Notes Notes: PHYSICAL EXAMINATION: GENERAL: Well-appearing, well-nourished and in no acute distress. HEAD: Atraumatic, normocephalic. EYES: Pupils equal round and reactive to light, extraocular movements intact, sclera anicteric, conjunctiva are normal. ENT: nares patent, oropharynx clear without exudates. Moist mucous membranes. NECK: Normal range of motion, supple without lymphadenopathy LUNGS: Breath sounds clear to auscultation bilaterally and equal. No wheezes rales or rhonchi. HEART: Regular rate and rhythm without murmurs ABDOMEN: Soft, nontender, normoactive bowel sounds. No guarding, no rebound. No masses appreciated. EXTREMITIES: Normal range of motion, no pitting or edema. No cyanosis. NEUROLOGICAL: Cranial nerves grossly intact. Normal speech, normal gait. Normal sensory and motor exams. PSYCH: Normal mood, normal affect. SKIN: Warm, Dry, normal turgor, no rashes or lesions noted. Course - Re-evaluation Re-evalutation: 11/06/17 09:56 Well-appearing young man presents with long-standing right lower quadrant post operative pain. Very reassuring physical exam, stable vital signs within normal limits will check basic labs. - Vital Signs Vital signs: Temp Pulse Resp BP Pulse Ox 98.1 F 81 24 H 130/73 H 97 11/06/17 09:34 11/06/17 09:34 11/06/17 09:34 11/06/17 09:34 11/06/17 09:34
[2017-11-06] MEDS ORDERED: OXYCODONE-ACETAMINOPHEN 5-325 MG TABLET PO ONE (09:57)
[2017-11-06 10:39] LABS: ABSOLUTE BASOPHILS # (AUTO) 0.1 10^3/uL (0.0-0.2); ABSOLUTE EOSINOPHILS # (AUTO) 0.1 10^3/uL (0.0-0.6); ABSOLUTE LYMPHOCYTES (AUTO) 2.7 10^3/uL (0.5-4.7); ABSOLUTE MONOCYTES (AUTO) 0.4 10^3/uL (0.1-1.4); ABSOLUTE NEUT (AUTO) 4.4 10^3/uL (1.7-8.2); BASOPHILS % (AUTO) 0.7 % (0-2); EOSINOPHILS % (AUTO) 1.2 % (0-6); HEMATOCRIT 44.8 % (37.9-51.0); HEMOGLOBIN 15.9 g/dL (13.5-17.0); LYMPHOCYTES % (AUTO) 35.4 % (13-45); MEAN CORPUSCULAR HEMOGLOBIN 31.6 pg (27.0-33.4); MEAN CORPUSCULAR HGB CONC 35.6 g/dL (32.0-36.0); MEAN CORPUSCULAR VOLUME 89 fl (80-97); MONOCYTES % (AUTO) 5.5 % (3-13); RED BLOOD COUNT 5.05 10^6/uL (4.35-5.55); RED CELL DISTRIBUTION WIDTH 12.9 % (11.5-14.0); SEGMENTED NEUTROPHILS % (AUTO) 57.2 % (42-78); TOTAL CELLS COUNTED % (AUTO) 100 %; WHITE BLOOD COUNT 7.7 10^3/uL (4.0-10.5)
[2017-11-06 10:43] LABS: ANION GAP 13 (5-19); BLOOD UREA NITROGEN 7 mg/dL (7-20); CALCIUM 10.4 mg/dL (8.4-10.2); CARBON DIOXIDE 26 mmol/L (22-30); CHLORIDE 107 mmol/L (98-107); GLUCOSE 99 mg/dL (75-110); POTASSIUM 4.9 mmol/L (3.6-5.0); SODIUM 145.5 mmol/L (137-145)
[2017-11-06 11:06] LABS: PLATELET COUNT 146 10^3/uL (150-450)
--- NOTE | 2017-11-06 11:51 | RADIOLOGY REPORT (SQ) ---
EXAM DESCRIPTION: U/S NON-OB PELVIS LTD W/O DOP COMPLETED DATE/TIME: 11/06/2017 11:30 am REASON FOR STUDY: RLQ abd pain surgical site hernia? COMPARISON: None. TECHNIQUE: Dynamic and static grayscale images acquired of the localized site of clinical concern an d recorded on PACS. Additional selected color Doppler and spectral images recorded. SITE OF CONCERN: Limited examination right lower quadrant abdomen-pelvis. LIMITATIONS: None. FINDINGS: The patient has a history of prior appendectomy 2015. The patient complains of pain at th e is cisternal site in the right lower quadrant of the abdomen. No abnormality identified by ultraso und examination. No abnormal fluid collections, hernia. Inguinal lymph nodes in the right groin whi ch contain a hilus of fat likely on a benign reactive basis. IMPRESSION: NO SOFT TISSUE MASS, FLUID COLLECTION, OR FOREIGN BODY. TECHNICAL DOCUMENTATION: JOB ID: [id number] [employer]- All Rights Reserved Reading location - IP/workstation name: [email or web address]
[2017-11-06 12:03] LABS: APPEARANCE,URINE CLEAR; BILIRUBIN,URINE NEGATIVE (NEGATIVE); COLOR,URINE YELLOW; GLUCOSE, URINE NEGATIVE (NEGATIVE); KETONES,URINE NEGATIVE (NEGATIVE); LEUKOCYTE ESTERASE,URINE NEGATIVE (NEGATIVE); NITRITE,URINE NEGATIVE (NEGATIVE); PROTEIN,URINE NEGATIVE (NEGATIVE); UROBILINOGEN,URINE NEGATIVE mg/dL (<2.0)
[2017-11-06 12:04] LABS: ADD MANUAL MICROSCOPIC YES
[2017-11-06 12:07] LABS: BACTERIA,URINE TRACE /HPF
[2017-11-06 13:15] VITALS: BP 128/80
--- NOTE | 2017-11-06 15:34 | ER Document Report ---
ED General - General Chief Complaint: Abdominal Pain Stated Complaint: RIGHT SIDE PAIN Time Seen by Provider: 11/06/17 09:47 TRAVEL OUTSIDE OF THE [place] IN LAST 30 DAYS: No - HPI Patient complains to provider of: Abdominal pain Notes: Patient coming in for evaluation of abdominal pain patient states the pain is localized right at his incision site from his recent appendectomy 2016. Patient states ongoing for the last few months however increased today while at work and almost made him fall to the floor. Patient denies any fevers chills nausea vomiting diarrhea. Patient states pain was very expensive and excruciating therefore came to the ER for further evaluation. Patient denies any bulging to the area denies any signs of hernia. Denies any trauma to the area patient states the pain is very achy - Related Data Allergies/Adverse Reactions: rondex Allergy (Mild, Uncoded 11/06/17 09:31) Past Medical History - Social History Smoking Status: Current Every Day Smoker Frequency of alcohol use: Social Drug Abuse: None Family History: Arthritis, CAD, Hyperlipidemia, Hypertension, Malignancy Patient has suicidal ideation: No Patient has homicidal ideation: No Pulmonary Medical History: Reports: Hx Asthma, Hx Bronchitis Renal/ Medical History: Reports: Hx Kidney Stones. Denies: Hx Peritoneal Dialysis Musculoskeltal Medical History: Reports Hx Musculoskeletal Deformity, Reports Hx Musculoskeletal Trauma Psychiatric Medical History: Reports: Hx Attention Deficit Hyperactivity Disorder Traumatic Medical History: Reports: Hx Fractures - right arm, Hx Traumatic Brain Injury Past Surgical History: Reports: Hx Abdominal Surgery - HERNIA, Hx Adenoidectomy , Hx Appendectomy, Hx Inguinal Hernia - right, Hx Neurologic Surgery, Hx Orthopedic Surgery, Hx Tonsillectomy - Immunizations Immunizations up to date: No Hx Diphtheria, Pertussis, Tetanus Vaccination: Yes Review of Systems - Review of Systems Constitutional: No symptoms reported EENT: No symptoms reported Cardiovascular: No symptoms reported Respiratory: No symptoms reported Gastrointestinal: Abdominal pain Genitourinary: No symptoms reported Male Genitourinary: No symptoms reported Musculoskeletal: No symptoms reported Skin: No symptoms reported Hematologic/Lymphatic: No symptoms reported Neurological/Psychological: No symptoms reported -: Yes All other systems reviewed and negative Physical Exam - Vital signs Vitals: Temp Pulse Resp BP Pulse Ox 98.1 F 81 24 H 130/73 H 97 11/06/17 09:34 11/06/17 09:34 11/06/17 09:34 11/06/17 09:34 11/06/17 09:34 Interpretation: Normal - General General appearance: Appears well, Alert - HEENT Head: Normocephalic, Atraumatic Eyes: Normal Pupils: PERRL - Respiratory Respiratory status: No respiratory distress Chest status: Nontender Breath sounds: Normal Chest palpation: Normal - Cardiovascular Rhythm: Regular Heart sounds: Normal auscultation Murmur: No - Abdominal Inspection: Normal Distension: No distension Bowel sounds: Normal Tenderness: Nontender Organomegaly: No organomegaly - Back Back: Normal, Nontender - Extremities General upper extremity: Normal inspection, Nontender, Normal color, Normal ROM , Normal temperature General lower extremity: Normal inspection, Nontender, Normal color, Normal ROM , Normal temperature, Normal weight bearing. No: Lynsey's sign - Neurological Neuro grossly intact: Yes Cognition: Normal Orientation: AAOx4 Hollie Coma Scale Eye Opening: Spontaneous [place] Coma Scale Verbal: Oriented Hollie Coma Scale Motor: Obeys Commands Hollie Coma Scale Total: 15 Speech: Normal Motor strength normal: LUE, RUE, LLE, RLE Sensory: Normal - Psychological Associated symptoms: Normal affect, Normal mood - Skin Skin Temperature: Warm Skin Moisture: Dry Skin Color: Normal Course - Re-evaluation Re-evalutation: 11/06/17 15:34 Examination is otherwise benign patient underwent ultrasound showing no signs of hernia formation. Possibility nerves trying to reconnect possible neuroma as the patient does now status is sharp context of the pain otherwise patient examination is still benign abdomen soft nontender patient was discharged home. The patient presents with abdominal pain without signs of peritonitis or other life-threatening or serious etiology. The patient appears stable for discharge and has been instructed to return immediately if the symptoms worsen in any way, or in 8-12hr if not improved for re-evaluation. The patient has been instructed to return if the symptoms worsen or change in any way. - Vital Signs Vital signs: Temp Pulse Resp BP Pulse Ox 98.2 F 76 20 128/80 H 98 11/06/17 13:14 11/06/17 13:14 11/06/17 13:14 11/06/17 13:14 11/06/17 13:14 - Laboratory Result Diagrams: 11/06/17 10:00 11/06/17 10:00 Laboratory results interpreted by me: 11/06/17 11/06/1711/06/18 10:00 10:00 10:00 Plt Count 146 L Sodium 145.5 H Calcium 10.4 H Creatine Kinase 208 H Discharge - Discharge Clinical Impression: Right lower quadrant abdominal pain Disposition: HOME, SELF-CARE Additional Instructions: Your ultrasound does not show any signs of hernias or other significant pathology. I recommend taking the medication as prescribed. Return to ER symptoms worsen follow-up with your primary care physician or the clinics provided. Prescriptions: Dicyclomine HCl [Bentyl 20 mg Tablet] 20 mg PO QID #30 tablet Ibuprofen [Motrin 600 Mg Tablet] 600 mg PO TID #30 tablet Forms: Return to Work Referrals: TIMMY LEON MD [Primary Care Provider] - Follow up as needed
== END 2017-11-06 13:14 | disposition home or self-care (01) ==
LOC: ER 09:31
DX: R10.31 Right lower quadrant pain (principal); G89.18 Other acute postprocedural pain; Z98.890 Other specified postprocedural states; F17.200 Nicotine dependence, unspecified, uncomplicated; J45.909 Unspecified asthma, uncomplicated
CPT/HCPCS: 36415; 76857; 80048; 81001; 82550; 83605; 85025; 99284

== ENCOUNTER 2017-11-22 06:43 | Emergency (ER) | payer OTHER ==
[2017-11-22 07:34] LABS: ABSOLUTE BASOPHILS # (AUTO) 0.1 10^3/uL (0.0-0.2); ABSOLUTE EOSINOPHILS # (AUTO) 0.1 10^3/uL (0.0-0.6); ABSOLUTE LYMPHOCYTES (AUTO) 1.9 10^3/uL (0.5-4.7); ABSOLUTE MONOCYTES (AUTO) 0.7 10^3/uL (0.1-1.4); ABSOLUTE NEUT (AUTO) 7.8 10^3/uL (1.7-8.2); BASOPHILS % (AUTO) 0.5 % (0-2); EOSINOPHILS % (AUTO) 0.9 % (0-6); HEMATOCRIT 43.9 % (37.9-51.0); HEMOGLOBIN 15.8 g/dL (13.5-17.0); LYMPHOCYTES % (AUTO) 17.5 % (13-45); MEAN CORPUSCULAR HEMOGLOBIN 32.3 pg (27.0-33.4); MEAN CORPUSCULAR HGB CONC 36.1 g/dL (32.0-36.0); MEAN CORPUSCULAR VOLUME 89 fl (80-97); MONOCYTES % (AUTO) 6.8 % (3-13); PLATELET COUNT 134 10^3/uL (150-450); RED BLOOD COUNT 4.91 10^6/uL (4.35-5.55); RED CELL DISTRIBUTION WIDTH 13.1 % (11.5-14.0); SEGMENTED NEUTROPHILS % (AUTO) 74.3 % (42-78); TOTAL CELLS COUNTED % (AUTO) 100 %; WHITE BLOOD COUNT 10.6 10^3/uL (4.0-10.5)
[2017-11-22 07:37] LABS: APPEARANCE,URINE CLEAR; BILIRUBIN,URINE NEGATIVE (NEGATIVE); COLOR,URINE YELLOW; GLUCOSE, URINE NEGATIVE (NEGATIVE); KETONES,URINE NEGATIVE (NEGATIVE); LEUKOCYTE ESTERASE,URINE SMALL (NEGATIVE); NITRITE,URINE NEGATIVE (NEGATIVE); PROTEIN,URINE NEGATIVE (NEGATIVE)
[2017-11-22 07:50] LABS: ALANINE AMINOTRANSFERASE 78 U/L (21-72); ALBUMIN 4.4 g/dL (3.5-5.0); ALKALINE PHOSPHATASE 82 U/L (38-126); ANION GAP 13 (5-19); ASPARTATE AMINO TRANSFERASE 40 U/L (17-59); BILIRUBIN,DIRECT 0.3 mg/dL (0.0-0.4); BILIRUBIN,TOTAL 1.7 mg/dL (0.2-1.3); BLOOD UREA NITROGEN 16 mg/dL (7-20); CALCIUM 9.7 mg/dL (8.4-10.2); CARBON DIOXIDE 24 mmol/L (22-30); CHLORIDE 106 mmol/L (98-107); GLUCOSE 99 mg/dL (75-110); LIPASE 89.5 U/L (23-300); POTASSIUM 4.3 mmol/L (3.6-5.0); SODIUM 143.4 mmol/L (137-145); TOTAL PROTEIN 7.5 g/dL (6.3-8.2)
--- NOTE | 2017-11-22 08:27 | ER Document Report ---
ED GI/ - General Chief Complaint: Vomiting Stated Complaint: VOMITING Time Seen by Provider: 11/22/17 07:02 Mode of Arrival: Ambulatory Information source: Patient Notes: Patient is a 27-year-old male who presents to the ER today for nausea, vomiting and sore throat. Patient states that he had a sore throat that began yesterday morning and then the nausea and vomiting began around midnight last night. Patient states that his daughter was recently diagnosed with strep throat and is still on antibiotics for it. He denies any cough, runny nose, fever that he knows of or chills. He denies any diarrhea or abdominal pain. He has been drinking plenty of fluids but since midnight has been unable to keep a lot of fluids down. He did take 1 of his 's Zofran and is no longer nauseated at this time. TRAVEL OUTSIDE OF THE [place] IN LAST 30 DAYS: No - Related Data Allergies/Adverse Reactions: rondex Allergy (Mild, Uncoded 11/06/17 09:31) Past Medical History - General Information source: Patient - Social History Smoking Status: Current Every Day Smoker Chew tobacco use (# tins/day): No Frequency of alcohol use: Rare Drug Abuse: None Family History: Arthritis, CAD, Hyperlipidemia, Hypertension, Malignancy Patient has suicidal ideation: No Patient has homicidal ideation: No Pulmonary Medical History: Reports: Hx Asthma, Hx Bronchitis Renal/ Medical History: Reports: Hx Kidney Stones. Denies: Hx Peritoneal Dialysis Musculoskeltal Medical History: Reports Hx Musculoskeletal Deformity, Reports Hx Musculoskeletal Trauma Psychiatric Medical History: Reports: Hx Attention Deficit Hyperactivity Disorder Traumatic Medical History: Reports: Hx Fractures - right arm, Hx Traumatic Brain Injury Past Surgical History: Reports: Hx Abdominal Surgery - HERNIA, Hx Adenoidectomy , Hx Appendectomy, Hx Inguinal Hernia - right, Hx Neurologic Surgery, Hx Orthopedic Surgery, Hx Tonsillectomy - Immunizations Immunizations up to date: No Hx Diphtheria, Pertussis, Tetanus Vaccination: Yes Review of Systems - Review of Systems Constitutional: See HPI EENT: No symptoms reported Cardiovascular: No symptoms reported Respiratory: No symptoms reported Gastrointestinal: See HPI Genitourinary: No symptoms reported Male Genitourinary: No symptoms reported Musculoskeletal: No symptoms reported Skin: No symptoms reported Hematologic/Lymphatic: No symptoms reported Neurological/Psychological: No symptoms reported Physical Exam - Vital signs Vitals: Temp Pulse Resp BP Pulse Ox 98.5 F 85 16 121/68 97 11/22/17 06:52 11/22/17 06:52 11/22/17 06:52 11/22/17 06:52 11/22/17 06:52 - Notes Notes: PHYSICAL EXAMINATION: GENERAL: Mildly ill-appearing, but in no acute distress. HEAD: Atraumatic, normocephalic. EYES: Pupils equal round and reactive to light, extraocular movements intact, sclera anicteric, conjunctiva are normal. ENT: ear canals without erythema or foreign body, TMs pearly ovalle with good bony landmarks, nares patent, oropharynx erythematous with enlarged tonsils bilaterally with exudates. Moist mucous membranes. NECK: Normal range of motion, supple with nontender bilateral cervical lymphadenopathy LUNGS: CTAB and equal. No wheezes rales or rhonchi. HEART: Regular rate and rhythm without murmurs ABDOMEN: Soft, no tenderness. No guarding, no rebound BACK: no vertebral tenderness, normal ROM GI/: no CVA tenderness EXTREMITIES: Normal range of motion, no pitting edema. No cyanosis. NEUROLOGICAL: Cranial nerves grossly intact. Normal sensory/motor exams. PSYCH: Normal mood, normal affect. SKIN: Warm, Dry, normal turgor, no rashes or lesions noted Course - Re-evaluation Re-evalutation: 11/22/17 11:28 Lab work is unremarkable today except for mildly elevated white blood cell count 10.6, patient positive for strep today. I will treat him with amoxicillin , Zofran and Magic mouthwash. Patient has not vomited here in the emergency department and declines IV fluids. - Vital Signs Vital signs: Temp Pulse Resp BP Pulse Ox 97.5 F 71 18 128/70 H 96 11/22/17 08:35 11/22/17 08:35 11/22/17 08:35 11/22/17 08:35 11/22/17 08:35 - Laboratory Result Diagrams: 11/22/17 07:07 11/22/17 07:07 Laboratory results interpreted by me: 11/22/17 11/22/17 11/22/17 07:07 07:07 07:07 WBC 10.6 H MCHC 36.1 H Plt Count 134 L Total Bilirubin 1.7 H ALT 78 H Urine Urobilinogen 2.0 H Ur Leukocyte Esterase SMALL H Discharge - Discharge Clinical Impression: Strep pharyngitis Nausea & vomiting Qualifiers: Vomiting type: unspecified Vomiting Intractability: non-intractable Qualified Code(s): R11.2 - Nausea with vomiting, unspecified Condition: Stable Disposition: HOME, SELF-CARE Additional Instructions: Return immediately for any new or worsening symptoms. Follow up with primary care provider, call tomorrow to make followup appointment. Drink plenty of fluids. Prescriptions: Ondansetron [Zofran Odt 4 mg Tablet] 1 - 2 tab PO Q4HP PRN #30 tab.rapdis PRN Reason: Amoxicillin 500 mg PO TID #30 capsule Nystatin/Dexameth/Diphen [Magic Mouthwash ([facility] Formula) Susp] 5 ml PO QID #120 ml Forms: Return to Work
[2017-11-22 08:36] VITALS: BP 128/70
== END 2017-11-22 08:35 | disposition home or self-care (01) ==
LOC: ER 06:43
DX: R11.2 Nausea with vomiting, unspecified (principal); J02.0 Streptococcal pharyngitis; J45.909 Unspecified asthma, uncomplicated; F17.200 Nicotine dependence, unspecified, uncomplicated; Z88.8 Allergy status to other drugs, medicaments and biological substances
CPT/HCPCS: 36415; 80053; 81001; 83690; 85025; 87880; 99284

== ENCOUNTER 2018-01-12 09:53 | Emergency (ER) | payer OTHER ==
[2018-01-12 10:03] VITALS: BP 124/80
[2018-01-12] MEDS ORDERED: ONDANSETRON 4 MG TAB.RAPDIS PO ONE (10:09)
--- NOTE | 2018-01-12 10:10 | ER Document Report ---
ED Medical Screen (RME) - General Chief Complaint: Nausea/Vomiting Stated Complaint: VOMITING, WEAKNESS Time Seen by Provider: 01/12/18 10:08 Mode of Arrival: Ambulatory Information source: Patient TRAVEL OUTSIDE OF THE [place] IN LAST 30 DAYS: No - HPI Patient complains to provider of: vomiting Onset: This morning - pt wioth several episodes of emesis earlier this am- denies abd pain. Feels it might be something he ate last pm - Related Data Allergies/Adverse Reactions: rondex Allergy (Mild, Uncoded 11/06/17 09:31) Past Medical History Pulmonary Medical History: Reports: Hx Asthma, Hx Bronchitis Renal/ Medical History: Reports: Hx Kidney Stones. Denies: Hx Peritoneal Dialysis Musculoskeltal Medical History: Reports Hx Musculoskeletal Deformity, Reports Hx Musculoskeletal Trauma Psychiatric Medical History: Reports: Hx Attention Deficit Hyperactivity Disorder Traumatic Medical History: Reports: Hx Fractures - right arm, Hx Traumatic Brain Injury Past Surgical History: Reports: Hx Abdominal Surgery - HERNIA, Hx Adenoidectomy , Hx Appendectomy, Hx Inguinal Hernia - right, Hx Neurologic Surgery, Hx Orthopedic Surgery, Hx Tonsillectomy - Immunizations Immunizations up to date: No Hx Diphtheria, Pertussis, Tetanus Vaccination: Yes Physical Exam - Vital signs Vitals: Temp Pulse Resp BP Pulse Ox 98.5 F 71 18 124/80 98 01/12/18 10:01/12/18 10:01/12/18 10:02 01/12/18 10:02 01/12/18 10:02 Course - Vital Signs Vital signs: Temp Pulse Resp BP Pulse Ox 98.5 F 71 18 124/80 98 01/12/18 10:02 01/12/18 10:01/12/18 10:02 01/12/18 10:02 01/12/18 10:02
[2018-01-12 10:56] LABS: ABSOLUTE EOSINOPHILS # (AUTO) 0.1 10^3/uL (0.0-0.6); ABSOLUTE LYMPHOCYTES (AUTO) 2.6 10^3/uL (0.5-4.7); ABSOLUTE MONOCYTES (AUTO) 0.4 10^3/uL (0.1-1.4); ABSOLUTE NEUT (AUTO) 3.9 10^3/uL (1.7-8.2); BASOPHILS % (AUTO) 0.6 % (0-2); EOSINOPHILS % (AUTO) 1.2 % (0-6); HEMATOCRIT 47.3 % (37.9-51.0); HEMOGLOBIN 16.5 g/dL (13.5-17.0); LYMPHOCYTES % (AUTO) 37.3 % (13-45); MEAN CORPUSCULAR HGB CONC 34.9 g/dL (32.0-36.0); MEAN CORPUSCULAR VOLUME 89 fl (80-97); MONOCYTES % (AUTO) 6.1 % (3-13); PLATELET COUNT 141 10^3/uL (150-450); RED BLOOD COUNT 5.31 10^6/uL (4.35-5.55); RED CELL DISTRIBUTION WIDTH 13.1 % (11.5-14.0); SEGMENTED NEUTROPHILS % (AUTO) 54.8 % (42-78); TOTAL CELLS COUNTED % (AUTO) 100 %
[2018-01-12 11:21] LABS: ALANINE AMINOTRANSFERASE 75 U/L (21-72); ALBUMIN 4.8 g/dL (3.5-5.0); ALKALINE PHOSPHATASE 86 U/L (38-126); ANION GAP 16 (5-19); APPEARANCE,URINE CLEAR; ASPARTATE AMINO TRANSFERASE 52 U/L (17-59); BILIRUBIN,DIRECT 0.3 mg/dL (0.0-0.4); BILIRUBIN,TOTAL 2.3 mg/dL (0.2-1.3); BILIRUBIN,URINE NEGATIVE (NEGATIVE); BLOOD UREA NITROGEN 12 mg/dL (7-20); CALCIUM 9.9 mg/dL (8.4-10.2); CARBON DIOXIDE 23 mmol/L (22-30); CHLORIDE 105 mmol/L (98-107); GLUCOSE 100 mg/dL (75-110); GLUCOSE, URINE NEGATIVE (NEGATIVE); KETONES,URINE NEGATIVE (NEGATIVE); LEUKOCYTE ESTERASE,URINE NEGATIVE (NEGATIVE); NITRITE,URINE NEGATIVE (NEGATIVE); POTASSIUM 4.3 mmol/L (3.6-5.0); PROTEIN,URINE 30 mg/dL (NEGATIVE); SODIUM 143.6 mmol/L (137-145); TOTAL PROTEIN 8.7 g/dL (6.3-8.2); URINE SPECIFIC GRAVITY 1.028
[2018-01-12 11:25] LABS: LIPASE 65.5 U/L (23-300)
[2018-01-12 11:28] LABS: COLOR,URINE YELLOW
--- NOTE | 2018-01-12 11:49 | ER Document Report ---
HPI - HPI Patient complains to provider of: Nausea vomiting diarrhea Onset: Yesterday Onset/Duration: Gradual Quality of pain: No pain Pain Level: Denies Context: Patient presents complaining of nausea vomiting diarrhea that started yesterday. Patient states he is vomited 3 times today and had diarrhea once. Patient denies any fever or abdominal tenderness. Patient was given nausea medicine and feels better now. Patient states he does need a note for his employer. Associated Symptoms: Diarrhea, Nausea, Vomiting. denies: Fever Exacerbated by: Denies Relieved by: Denies Similar symptoms previously: Yes Recently seen / treated by doctor: No - ROS ROS below otherwise negative: Yes Systems Reviewed and Negative: Yes All other systems reviewed and negative - CONSTITUTIONAL Constitutional: DENIES: Fever - EENT EENT: DENIES: Congestion - NEURO Neurology: DENIES: Headache - CARDIOVASCULAR Cardiovascular: DENIES: Chest pain - RESPIRATORY Respiratory: DENIES: Trouble Breathing, Coughing - GASTROINTESTINAL Gastrointestinal: REPORTS: Nausea, Patient vomiting, Diarrhea. 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 Denies: Hx Peritoneal Dialysis Musculoskeletal Medical History: Reports Hx Musculoskeletal Deformity, Reports Hx Musculoskeletal Trauma Psychiatric Medical History: Reports: Hx Attention Deficit Hyperactivity Disorder Traumatic Medical History: Reports: Hx Fractures - right arm, Hx Traumatic Brain Injury Past Surgical History: Reports: Hx Abdominal Surgery - HERNIA, Hx Adenoidectomy , Hx Appendectomy, Hx Inguinal Hernia - right, Hx Neurologic Surgery, Hx Orthopedic Surgery, Hx Tonsillectomy - Immunizations Immunizations up to date: No Hx Diphtheria, Pertussis, Tetanus Vaccination: Yes Vertical Provider Document - CONSTITUTIONAL Agree With Documented VS: Yes Exam Limitations: No Limitations General Appearance: WD/WN, No Apparent Distress - INFECTION CONTROL TRAVEL OUTSIDE OF THE [place] IN LAST 30 DAYS: No - HEENT HEENT: Atraumatic, Normal ENT Exam, Normocephalic - NECK Neck: Normal Inspection, Supple. negative: Lymphadenopathy-Left, Lymphadenopathy-Right - RESPIRATORY Respiratory: Breath Sounds Normal, No Respiratory Distress - CARDIOVASCULAR Cardiovascular: Regular Rate, Regular Rhythm, No Murmur - GI/ABDOMEN Gastrointestinal: Abdomen Soft, Abdomen Non-Tender, Abdomen Tender, Normal Bowel Sounds - BACK Back: Normal Inspection. negative: CVA Tenderness-Right, CVA Tenderness-Left - MUSCULOSKELETAL/EXTREMETIES Musculoskeletal/Extremeties: MAEW, FROM - NEURO Level of Consciousness: Awake, Alert, Appropriate Motor/Sensory: No Motor Deficit - DERM Integumentary: Warm, Dry, No Rash Course - Re-evaluation Re-evalutation: 01/12/18 11:45 Patient denies any abdominal pain symptoms, patient denies any nausea vomiting or diarrhea while here in the ER. Patient tolerating oral fluids without difficulty. Patient is requesting a note for his employer. Consulted with Dr. Larry regarding patient's diagnostic evaluation. Recommend outpatient follow- up with a primary doctor to have labs repeated in about 5-7 days given elevated total bilirubin and ALT - Vital Signs Vital signs: Temp Pulse Resp BP Pulse Ox 98.5 F 71 18 124/80 98 01/12/18 10:02 01/12/18 10:02 01/12/18 10:02 01/12/18 10:02 01/12/18 10:02 - Laboratory Result Diagrams: 01/12/18 10:24 01/12/18 10:24 Laboratory results interpreted by me: 01/12/18 01/12/18 01/12/18 10:24 10:24 10:24 Plt Count 141 L Total Bilirubin 2.3 H ALT 75 H Total Protein 8.7 H Urine Protein 30 H Urine Urobilinogen 4.0 H 01/12/18 11:46 Labs- Entire Visit 01/12/18 01/12/18 01/12/18 10:24 10:24 10:24 WBC 7.0 RBC 5.31 Hgb 16.5 Hct 47.3 MCV 89 MCH 31.0 MCHC 34.9 RDW 13.1 Plt Count 141 L Seg Neutrophils % 54.8 Lymphocytes % 37.3 Monocytes % 6.1 Eosinophils % 1.2 Basophils % 0.6 Absolute Neutrophils 3.9 Absolute Lymphocytes 2.6 Absolute Monocytes 0.4 Absolute Eosinophils 0.1 Absolute Basophils 0.0 Sodium 143.6 Potassium 4.3 Chloride 105 Carbon Dioxide 23 Anion Gap 16 BUN 12 Creatinine 0.78 Est GFR ( Amer) > 60 Est GFR (Non-Af Amer) > 60 Glucose 100 Calcium 9.9 Total Bilirubin 2.3 H Direct Bilirubin 0.3 Neonat Total Bilirubin Not Reportable Neonat Direct Bilirubin Not Reportable Neonat Indirect Bili Not Reportable AST 52 ALT 75 H Alkaline Phosphatase 86 Total Protein 8.7 H Albumin 4.8 Lipase Urine Color YELLOW Urine Appearance CLEAR Urine pH 7.0 Ur Specific [place] 1.028 Urine Protein 30 H Urine Glucose (UA) NEGATIVE Urine Ketones NEGATIVE Urine Blood NEGATIVE Urine Nitrite NEGATIVE Urine Bilirubin NEGATIVE Urine Urobilinogen 4.0 H Ur Leukocyte Esterase NEGATIVE Urine WBC (Auto) 4 Urine RBC (Auto) 1 U Hyaline Cast (Auto) 1 Squamous Epi Cells Auto <1 Urine Mucus (Auto) MOD Urine Ascorbic Acid NEGATIVE 01/12/18 10:24 WBC RBC Hgb Hct MCV MCH MCHC RDW Plt Count Seg Neutrophils % Lymphocytes % Monocytes % Eosinophils % Basophils % Absolute Neutrophils Absolute Lymphocytes Absolute Monocytes Absolute Eosinophils Absolute Basophils Sodium Potassium Chloride Carbon Dioxide Anion Gap BUN Creatinine Est GFR ( Amer) Est GFR (Non-Af Amer) Glucose Calcium Total Bilirubin Direct Bilirubin Neonat Total Bilirubin Neonat Direct Bilirubin Neonat Indirect Bili AST ALT Alkaline Phosphatase Total Protein Albumin Lipase 65.5 Urine Color Urine Appearance Urine pH Ur Specific [place] Urine Protein Urine Glucose (UA) Urine Ketones Urine Blood Urine Nitrite Urine Bilirubin Urine Urobilinogen Ur Leukocyte Esterase Urine WBC (Auto) Urine RBC (Auto) U Hyaline Cast (Auto) Squamous Epi Cells Auto Urine Mucus (Auto) Urine Ascorbic Acid Discharge - Discharge Clinical Impression: Nausea vomiting and diarrhea, Total bilirubin, elevated, Liver function study, abnormal Condition: Stable Disposition: HOME, SELF-CARE Instructions: Antinausea Medication ([facility]), Diarrhea, Nonspecific ([facility]), Liver Function Abnormality ([facility]), Vomiting ([facility]) Additional Instructions: Return immediately for any new or worsening symptoms Followup with your primary care provider, call tomorrow to make a followup appointment Your total bilirubin and ALT liver function tests were elevated. Follow-up with a primary doctor in 5-7 days to have these tests repeated. Prescriptions: Ondansetron HCl [Zofran 4 mg Tablet] 1 - 2 tab PO Q6 PRN #15 tablet PRN Reason: Forms: Return to Work Referrals: [facility] [Provider Group] - 01/15/18 [facility] [Provider Group] - 01/15/18
== END 2018-01-12 12:25 | disposition home or self-care (01) ==
LOC: ER 09:53
DX: R11.2 Nausea with vomiting, unspecified (principal); R19.7 Diarrhea, unspecified; R94.5 Abnormal results of liver function studies; J45.909 Unspecified asthma, uncomplicated; Z87.891 Personal history of nicotine dependence
CPT/HCPCS: 36415; 80053; 81001; 83690; 85025; 99285

== ENCOUNTER 2018-01-16 06:55 | Emergency (ER) | payer OTHER ==
--- NOTE | 2018-01-16 09:51 | ER Document Report ---
ED General - General TRAVEL OUTSIDE OF THE [place] IN LAST 30 DAYS: No <WANDACARLY Yoel - Last Filed: 01/16/18 09:50> - General Mode of Arrival: Ambulatory Information source: Patient TRAVEL OUTSIDE OF THE [place] IN LAST 30 DAYS: No - HPI Onset: Yesterday Onset/Duration: Sudden, Better Quality of pain: No pain Severity: None Pain Level: Denies Associated symptoms: Diarrhea. denies: Nonproductive cough, Productive cough Exacerbated by: Denies Relieved by: Denies Similar symptoms previously: No Recently seen / treated by doctor: No <SHERLEY ARCHULETA - Last Filed: 01/16/18 10:20> - General Chief Complaint: Diarrhea Stated Complaint: ABDOMINAL PAIN Time Seen by Provider: 01/16/18 09:47 Notes: Patient presents to the emergency department with reports of diarrhea for the last day and a half. He reports his stepdaughter was on the toilet a couple nights ago all night long. He denies abdominal pain. Reports that the diarrhea is tapering off he just wants to know why he had it. He denies fever vomiting. Denies past medical history of diarrhea. Denies chronic illnesses. No recent antibiotics and no recent trips overseas. Has not taken any type of OTC aids for relief of diarrhea. Reports he is eating/drinking without problems. Also requesting an x-ray of his chest because he is worried they might have popcorn lungs because he just started smoking the e-cigarette. Denies cough/cp/sob. started smoking ecig 2 weeks ago. (SHERLEY ARCHULETA) - Related Data Allergies/Adverse Reactions: rondex Allergy (Mild, Uncoded 01/12/18 10:10) Past Medical History - Social History Smoking Status: Current Every Day Smoker Chew tobacco use (# tins/day): No Frequency of alcohol use: None Drug Abuse: None Family History: Arthritis, CAD, Hyperlipidemia, Hypertension, Malignancy Patient has suicidal ideation: No Patient has homicidal ideation: No Pulmonary Medical History: Reports: Hx Asthma, Hx Bronchitis Renal/ Medical History: Reports: Hx Kidney Stones. Denies: Hx Peritoneal Dialysis Musculoskeletal Medical History: Reports Hx Musculoskeletal Deformity, Reports Hx Musculoskeletal Trauma Psychiatric Medical History: Reports: Hx Attention Deficit Hyperactivity Disorder Traumatic Medical History: Reports: Hx Fractures - right arm, Hx Traumatic Brain Injury Past Surgical History: Reports: Hx Abdominal Surgery - HERNIA, Hx Adenoidectomy , Hx Appendectomy, Hx Inguinal Hernia - right, Hx Neurologic Surgery, Hx Orthopedic Surgery, Hx Tonsillectomy - Immunizations Immunizations up to date: No Hx Diphtheria, Pertussis, Tetanus Vaccination: Yes <CARLY MUÑOZ - Last Filed: 01/16/18 09:50> - General Information source: Patient - Social History Smoking Status: Current Every Day Smoker Cigarette use (# per day): No - ecig Frequency of alcohol use: None Drug Abuse: None Lives with: Family <SHERLEY ARCHULETA - Last Filed: 01/16/18 10:20> Review of Systems <CARLY MUÑOZ - Last Filed: 01/16/18 09:50> <SHERLEY ARCHULETA - Last Filed: 01/16/18 10:20> - Review of Systems Notes: Review HPI for review of systems., All other systems negative (SHERLEY ARCHULETA) Physical Exam <CARLY MUÑOZ - Last Filed: 01/16/18 09:50> <SHERLEY ARCHULETA - Last Filed: 01/16/18 10:20> - Vital signs Vitals: Temp Pulse Resp BP Pulse Ox 98.5 F 70 18 104/75 98 01/16/18 06:56 01/16/18 06:56 01/16/18 06:56 01/16/18 06:56 01/16/18 06:56 - Notes Notes: PHYSICAL EXAMINATION: GENERAL: Well-appearing and in no acute distress HEAD: Atraumatic, normocephalic. EYES: extraocular movements intact, sclera anicteric, conjunctiva are normal. ENT: nares patent, oropharynx clear without exudates. Moist mucous membranes. NECK: Normal range of motion, supple without lymphadenopathy LUNGS: CTAB and equal. No wheezes rales or rhonchi. HEART: Regular rate and rhythm without murmurs ABDOMEN: Soft, no tenderness. No guarding, no rebound, good BSX 4Q EXTREMITIES: Normal range of motion, no pitting edema. No cyanosis. NEUROLOGICAL: Cranial nerves grossly intact. Normal sensory/motor exams. PSYCH: Normal mood, normal affect. SKIN: Warm, Dry, normal turgor, no rashes or lesions noted (SHERLEY ARCHULETA) Course <CARLY MUÑOZ - Last Filed: 01/16/18 09:50> <SHERLEY ARCHULETA - Last Filed: 01/16/18 10:20> - Re-evaluation Re-evalutation: 01/16/18 10:19 Patient was instructed on [id number] aids for diarrhea. Instructed to push fluids and follow-up with his primary care return for any concerns. He verbalized understanding. (SHERLEY ARCHULETA) - Vital Signs Vital signs: Temp Pulse Resp BP Pulse Ox 98.5 F 70 18 104/75 98 01/16/18 06:56 01/16/18 06:56 01/16/18 06:56 01/16/18 06:56 01/16/18 06:56 Discharge <CARLY MUÑOZ - Last Filed: 01/16/18 09:50> <SHERLEY ARCHULETA - Last Filed: 01/16/18 10:20> - Discharge Clinical Impression: Diarrhea Qualifiers: Diarrhea type: unspecified type Qualified Code(s): R19.7 - Diarrhea, unspecified Condition: Stable Disposition: HOME, SELF-CARE Instructions: Diarrhea, Nonspecific ([facility]), OTC Antidiarrhea Medication ([facility]) Additional Instructions: *You have been evaluated for diarrhea *Over the counter anti-diarrheal as indicated *Ensure adequate fluid intake as discussed to prevent dehydration *Follow up with a primary care provider within 5 days *Return to ED for worsening condition, changes, needs Forms: Smoking Cessation Education, Return to Work
[2018-01-16 19:41] VITALS: BP 108/69
== END 2018-01-16 10:10 | disposition home or self-care (01) ==
LOC: ER 06:55
DX: R19.7 Diarrhea, unspecified (principal); J45.909 Unspecified asthma, uncomplicated; F17.290 Nicotine dependence, other tobacco product, uncomplicated
CPT/HCPCS: 99283

== ENCOUNTER → 2018-01-29 | Outpatient (CLI) | payer OTHER ==
--- NOTE | 2018-01-29 11:18 | RADIOLOGY REPORT (SQ) ---
EXAM DESCRIPTION: U/S ABDOMEN LIMITED W/O DOP COMPLETED DATE/TIME: 01/29/2018 10:40 am REASON FOR STUDY: ELEVATED LIVER ENZYMES R74.8 ABNORMAL LEVELS OF OTHER SERUM ENZYMES COMPARISON: None. TECHNIQUE: Dynamic and static grayscale images acquired of the abdomen and recorded on PACS. Additio nal selected color Doppler and spectral images recorded. LIMITATIONS: None. FINDINGS: PANCREAS: No masses. Visualized pancreatic duct normal caliber. LIVER: Fatty liver. The liver measures 16.6 cm, normal size. LIVER VASCULATURE: Normal directional flow of the main portal vein and hepatic veins. GALLBLADDER: No stones. The gallbladder wall measures 2.1 mm, normal wall thickness. No pericholecys tic fluid. ULTRASOUND-DETECTED MONTENEGRO'S SIGN: Negative. INTRAHEPATIC DUCTS AND COMMON DUCT: CBD measures 2.9 mm in diameter, normal. The intrahepatic ducts normal caliber. No filling defects. INFERIOR VENA CAVA: Normal flow. AORTA: No aneurysm. RIGHT KIDNEY: The right kidney measures 10.3 cm, normal size. Normal echogenicity. No solid or suspi cious masses. No hydronephrosis. No calcifications. PERITONEAL AND RIGHT PLEURAL SPACE: No ascites or effusions. OTHER: No other significant findings. IMPRESSION: 1 Fatty liver. TECHNICAL DOCUMENTATION: JOB ID: [id number] [employer]- All Rights Reserved Reading location - IP/workstation name: [email or web address]
== END ==
LOC: RAD 09:37
PROVIDERS: ATTEND Family Medicine
DX: R74.8 Abnormal levels of other serum enzymes (principal); K76.0 Fatty (change of) liver, not elsewhere classified
CPT/HCPCS: 76705

== ENCOUNTER 2018-04-23 05:05 | Emergency (ER) | payer SELFPAY ==
[2018-04-23] MEDS ORDERED: IBUPROFEN 600 MG TABLET PO ONE (05:47)
--- NOTE | 2018-04-23 06:09 | RADIOLOGY REPORT (SQ) ---
EXAM DESCRIPTION: XR ANKLE 3 OR MORE VIEWS COMPLETED DATE/TME: 04/23/2018 05:40 CLINICAL HISTORY: 27 years, Male, left ankle pain, denies injury COMPARISON: None. NUMBER OF VIEWS: 3 TECHNIQUE: 3 view left ankle LIMITATIONS: None. FINDINGS: Negative for fracture or dislocation. Soft tissues are unremarkable. Joint spaces are preserved IMPRESSION: Negative exam 2010 [facility] [employer]- All Rights Reserved
--- NOTE | 2018-04-23 08:09 | ER Document Report ---
HPI - HPI Time Seen by Provider: 04/23/18 05:40 Pain Level: 4 Notes: Patient is a 27-year-old male who presents with chief complaint of left posterior ankle pain over the last 2 days. He denies any known injury. He reports that he is able to walk on it without difficulty. He states that the pain comes and goes and he believes he feels like it is swollen. Patient has no past medical history and does not take any medications. Patient has not taken any medications for this. - REPRODUCTIVE Reproductive: DENIES: : - MUSCULOSKELETAL Musculoskeletal: REPORTS: Extremity pain - left ankle Past Medical History - General Information source: Patient - Social History Smoking Status: Current Every Day Smoker Frequency of alcohol use: Rare Drug Abuse: None Family History: Arthritis, CAD, Hyperlipidemia, Hypertension, Malignancy Patient has suicidal ideation: No Patient has homicidal ideation: No Pulmonary Medical History: Reports: Hx Asthma, Hx Bronchitis Renal/ Medical History: Reports: Hx Kidney Stones. Denies: Hx Peritoneal Dialysis Musculoskeletal Medical History: Reports Hx Musculoskeletal Deformity, Reports Hx Musculoskeletal Trauma Psychiatric Medical History: Reports: Hx Attention Deficit Hyperactivity Disorder Traumatic Medical History: Reports: Hx Fractures - right arm, Hx Traumatic Brain Injury Past Surgical History: Reports: Hx Abdominal Surgery - HERNIA, Hx Adenoidectomy , Hx Appendectomy, Hx Inguinal Hernia - right, Hx Neurologic Surgery, Hx Orthopedic Surgery, Hx Tonsillectomy - Immunizations Immunizations up to date: No Hx Diphtheria, Pertussis, Tetanus Vaccination: Yes Vertical Provider Document - CONSTITUTIONAL Notes: PHYSICAL EXAMINATION: GENERAL: Well-appearing, well-nourished and in no acute distress. HEAD: Atraumatic, normocephalic. EYES: Pupils equal round extraocular movements intact, conjunctiva are normal. ENT: Nares patent NECK: Normal range of motion LUNGS: No respiratory distress Musculoskeletal: Normal range of motion, mild swelling without ecchymosis noted to the left ankle. Dorsalis pedis pulses palpable, cap refill less than 3 seconds, normal motor and sensation distal to injury. NEUROLOGICAL: Normal speech, normal gait. PSYCH: Normal mood, normal affect. SKIN: Warm, Dry, normal turgor, no rashes or lesions noted. - INFECTION CONTROL TRAVEL OUTSIDE OF THE [place] IN LAST 30 DAYS: No Course - Re-evaluation Re-evalutation: X-rays negative for any acute findings to include fracture or dislocation. Likely sprain. Patient placed in an ankle stirrup splint and given crutches. Instructed to take ibuprofen ice and elevate. - Vital Signs Vital signs: Temp Pulse Resp BP Pulse Ox 98.5 F 86 16 137/79 H 96 04/23/18 05:08 04/23/18 05:08 04/23/18 05:08 04/23/18 05:08 04/23/18 05:08 Procedures - Immobilization Left ankle Pre-Proc Neuro Vasc Exam: Normal Immobilizer type: Ankle stirrup, Crutches Discharge - Discharge Clinical Impression: Ankle pain, left Qualifiers: Chronicity: acute Qualified Code(s): M25.572 - Pain in left ankle and joints of left foot Condition: Stable Disposition: HOME, SELF-CARE Additional Instructions: SPRAINED ANKLE: Your sprained ankle results from stretching or tearing of the ligaments which support the ankle. This usually results from twisting the foot inward and under. The ligaments will require time and protection in order to heal properly. Many ankle sprains are quite disabling, and should be taken seriously. The usual treatment for an ankle sprain is cold packs; protection with tape , splints, or wraps; elevation; and staying off the ankle for at least a day. As the ankle improves, you can walk IF it's not painful to bear weight. Sports are best postponed until healing is complete. More serious sprains usually require strengthening exercises after early healing. Your physician has assessed the seriousness of the ligament injury to your ankle. However, the treatment may change, depending on how your ankle progresses. If further exams were recommended, it is important that you follow through. Call the doctor if your foot becomes numb, painful, or severely swollen. ANKLE STIRRUP SPLINT: You are to use an ankle brace called a stirrup splint. This type of brace allows you to place greater stresses on the ankle without risk of re-injury, and is often used for more severe ankle injuries such as avulsion fractures and ligament ruptures. The splint can be worn over a sock or tape. For proper support, wear the splint with a shoe over it. It's important that the splint fit properly. Adjust the heel tension, if needed. If your splint has air bladders, peel back the bottom of each air bladder, then move the Velcro attachment of the heel strap up or down. Air bladder pressure can be adjusted by pulling up the valve at the top, threading the air tube down into the main bladder, then blowing air into the bladder or squeezing it out. The two sides of the stirrup can be moved forward or back on your ankle by changing the attachment of the main straps. If you are unable to use the ankle comfortably in the splint, return for re -evaluation. USE OF CRUTCHES: The doctor has recommended that you not bear weight at this time. You will need to use crutches. Adjust the crutches so the tops come to about two inches under the armpit while you are standing upright. Use your hands -- not your armpits -- to support your weight. To get into a chair, support yourself with one crutch on the injured side. Hold the chair with the other hand, then lower yourself while putting all your weight on the good leg. Going up stairs is `good leg up, step up, then bring up crutches and bad leg.' Down stairs is `bad leg and crutches down, then bring good leg down.' If you develop numbness or swelling in an arm or hand, you are using the crutches incorrectly. Return if you are having any problems with the crutches. ICE & ELEVATION: Apply ice packs frequently against the painful area. Many different schedules are recommended, such as "20 minutes on, 20 minutes off" or "one hour ice, two hours rest." If you need to work, you may need to go longer between ice treatments. You should plan to have the area ice packed AT LEAST one- fourth of the time. The ice should be applied over the wrap, tape, or splint, or over a layer of cloth -- not directly against the skin. Some ice bags have a built-in cloth and can be put directly on the skin. Your injured part should be elevated as much as possible over the next 48 hours. Try to keep the injury above the level of the heart. Avoid use of the injured area. Elevation and rest will decrease the swelling. USE OF [id number] IBUPROFEN: Ibuprofen (Advil, Nuprin, Medipren, Motrin IB) is a medication for fever and pain control. In addition, it has anti- inflammatory effects which may be beneficial, especially in the treatment of injuries. It's best to take ibuprofen with food. Persons with ulcer disease or allergy to aspirin should notify their physician of this before taking ibuprofen. Ibuprofen can be given every four to six hours, for a total of four doses daily. Age Pain or fever dose Antiinflammatory dose 15-adult 400 mg (2 tab) 600 mg (3 tab) FOLLOW-UP CARE: If you have been referred to a physician for follow-up care, call the physician s office for an appointment as you were instructed or within the next two days. If you experience worsening or a significant change in your symptoms, notify the physician immediately or return to the Emergency Department at any time for re-evaluation. Forms: Return to Work
[2018-04-23 08:55] VITALS: BP 132/90
== END 2018-04-23 08:56 | disposition home or self-care (01) ==
LOC: ER 05:05
DX: M25.572 Pain in left ankle and joints of left foot (principal); M79.89 Other specified soft tissue disorders; F17.200 Nicotine dependence, unspecified, uncomplicated; J45.909 Unspecified asthma, uncomplicated
CPT/HCPCS: 99283; 73610; L1902

== ENCOUNTER 2018-04-29 13:41 | Emergency (ER) | payer SELFPAY ==
[2018-04-29 13:55] VITALS: BP 117/62
--- NOTE | 2018-04-29 14:19 | ER Document Report ---
HPI - HPI Patient complains to provider of: dysuria Time Seen by Provider: 04/29/18 14:03 Onset: This morning Onset/Duration: Sudden Quality of pain: Pressure Pain Level: 4 Context: Patient presents emergency department with complaints of stinging burning when he voids and a little pressure on his lower abdomen when his belt is buckled but is relieved when he unbuckles his belt. Denies fever nausea vomiting diarrhea but reports he felt a little queasy. Reports symptoms started this morning when he woke up. Reports one sexual partner and uses protection. Although he reports he did not use protection last night and a few other nights. Denies testicular pain denies penile discharge. Denies urinary retention or hesitancy. Reports he is he is eating drinking as normal. 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 Denies: Hx Peritoneal Dialysis Musculoskeletal Medical History: Reports Hx Musculoskeletal Deformity, Reports Hx Musculoskeletal Trauma Psychiatric Medical History: Reports: Hx Attention Deficit Hyperactivity Disorder Traumatic Medical History: Reports: Hx Fractures - right arm, Hx Traumatic Brain Injury Past Surgical History: Reports: Hx Abdominal Surgery - HERNIA, Hx Adenoidectomy , Hx Appendectomy, Hx Inguinal Hernia - right, Hx Neurologic Surgery, Hx Orthopedic Surgery, Hx Tonsillectomy - Immunizations Immunizations up to date: No Hx Diphtheria, Pertussis, Tetanus Vaccination: Yes Vertical Provider Document - CONSTITUTIONAL Agree With Documented VS: Yes Exam Limitations: No Limitations General Appearance: WD/WN, No Apparent Distress - INFECTION CONTROL TRAVEL OUTSIDE OF THE [place] IN LAST 30 DAYS: No - HEENT HEENT: Atraumatic, Normocephalic - NECK Neck: Normal Inspection, Supple. negative: Lymphadenopathy-Left, Lymphadenopathy-Right - RESPIRATORY Respiratory: Breath Sounds Normal, No Respiratory Distress - CARDIOVASCULAR Cardiovascular: Regular Rate, Regular Rhythm - GI/ABDOMEN Gastrointestinal: Abdomen Soft, Abdomen Non-Tender - BACK Back: negative: CVA Tenderness-Right, CVA Tenderness-Left - MUSCULOSKELETAL/EXTREMETIES Musculoskeletal/Extremeties: MAEW, FROM, Non-Tender - NEURO Level of Consciousness: Awake, Alert, Appropriate Motor/Sensory: No Motor Deficit - DERM Integumentary: Warm, Dry Course - Re-evaluation Re-evalutation: 04/29/18 14:17 Patient instructed on plan of care for UA and GC chlamydia. He verbalized understanding. Dictation of this chart was performed using voice recognition software; therefore, there may be some unintended grammatical errors. 04/29/18 15:59 Urine negative still waiting for STD cultures patient will be instructed that he will be notified if they are positive and he needs treatment. Patient requesting work note. 04/29/18 18:40 STD cultures negative. - Vital Signs Vital signs: Temp Pulse Resp BP Pulse Ox 97.9 F 60 15 117/62 97 04/29/18 13:53 04/29/18 13:53 04/29/18 13:53 04/29/18 13:53 04/29/18 13:53 Discharge - Discharge Clinical Impression: Dysuria Condition: Stable Disposition: HOME, SELF-CARE Instructions: [facility] Additional Instructions: *You have been evaluated for burning while voiding *Your STD cultures will be completed in approximately 3 hours. You will be notified by the culture nurse if they are positive and you need antibiotics *Push fluids *Follow up with your primary care provider within one week for recheck *Return to ED for worsening condition, changes, needs Forms: Return to Work
[2018-04-29 15:36] LABS: APPEARANCE,URINE CLEAR; BILIRUBIN,URINE NEGATIVE (NEGATIVE); COLOR,URINE YELLOW; GLUCOSE, URINE NEGATIVE (NEGATIVE); KETONES,URINE NEGATIVE (NEGATIVE); LEUKOCYTE ESTERASE,URINE TRACE (NEGATIVE); NITRITE,URINE NEGATIVE (NEGATIVE); PROTEIN,URINE NEGATIVE (NEGATIVE); URINE SPECIFIC GRAVITY 1.018; UROBILINOGEN,URINE NEGATIVE mg/dL (<2.0)
[2018-04-29 16:56] LABS: CHLAM PCR NOT DETECTED (NOT DETECT); GON PCR NOT DETECTED (NOT DETECT)
== END 2018-04-29 16:07 | disposition home or self-care (01) ==
LOC: ER 13:41
DX: R30.0 Dysuria (principal); R10.30 Lower abdominal pain, unspecified; R11.0 Nausea; F17.210 Nicotine dependence, cigarettes, uncomplicated; J45.909 Unspecified asthma, uncomplicated
CPT/HCPCS: 81001; 87491; 87591; 99283

== ENCOUNTER 2018-08-30 01:50 | Emergency (ER) | payer SELFPAY ==
[2018-08-30 01:55] VITALS: BP 139/81
--- NOTE | 2018-08-30 03:58 | ER Document Report ---
ED Extremity Problem, Lower - General Chief Complaint: Ankle Pain Stated Complaint: RIGHT ANKLE PAIN Time Seen by Provider: 08/30/18 03:04 Notes: Patient presented to the emergency room complaining of right ankle pain after he accidentally rolled his ankle yesterday at home. TRAVEL OUTSIDE OF THE [place] IN LAST 30 DAYS: No - HPI Patient complains to provider of: Pain Location: Ankle Occurred: This evening Where: Home Onset/Duration: Sudden Quality of pain: Dull Severity: Mild Pain Level: 2 Context: Twisted Recent injury: Possibly Exacerbated by: Walking Relieved by: Rest - Related Data Allergies/Adverse Reactions: rondex Allergy (Mild, Uncoded 01/12/18 10:10) Past Medical History - Social History Smoking Status: Current Every Day Smoker Family History: Arthritis, CAD, Hyperlipidemia, Hypertension, Malignancy Patient has suicidal ideation: No Patient has homicidal ideation: No Pulmonary Medical History: Reports: Hx Asthma, Hx Bronchitis Renal/ Medical History: Reports: Hx Kidney Stones. Denies: Hx Peritoneal Dialysis Musculoskeletal Medical History: Reports Hx Musculoskeletal Deformity, Reports Hx Musculoskeletal Trauma Psychiatric Medical History: Reports: Hx Attention Deficit Hyperactivity Disord er Traumatic Medical History: Reports: Hx Fractures - right arm, Hx Traumatic Brain Injury Past Surgical History: Reports: Hx Abdominal Surgery - HERNIA, Hx Adenoidectomy, Hx Appendectomy, Hx Inguinal Hernia - right, Hx Neurologic Surgery, Hx Orthopedic Surgery, Hx Tonsillectomy - Immunizations Immunizations up to date: No Hx Diphtheria, Pertussis, Tetanus Vaccination: Yes Review of Systems - Review of Systems Constitutional: No symptoms reported EENT: No symptoms reported Cardiovascular: No symptoms reported Respiratory: No symptoms reported Gastrointestinal: No symptoms reported Genitourinary: No symptoms reported Male Genitourinary: No symptoms reported Musculoskeletal: Joint pain - Right ankle pain. denies: Ankle swelling Skin: No symptoms reported Hematologic/Lymphatic: No symptoms reported Neurological/Psychological: No symptoms reported -: Yes All other systems reviewed and negative Physical Exam - Vital signs Vitals: Temp Pulse Resp BP Pulse Ox 97.9 F 84 18 139/81 H 97 08/30/18 01:54 08/30/18 01:54 08/30/18 01:54 08/30/18 01:54 08/30/18 01:54 Interpretation: Normal - General General appearance: Appears well, Alert - HEENT Head: Normocephalic, Atraumatic Eyes: Normal Pupils: PERRL - Respiratory Respiratory status: No respiratory distress Chest status: Nontender Breath sounds: Normal Chest palpation: Normal - Cardiovascular Rhythm: Regular Heart sounds: Normal auscultation Murmur: No - Abdominal Inspection: Normal Distension: No distension Bowel sounds: Normal Tenderness: Nontender Organomegaly: No organomegaly - Back Back: Normal, Nontender - Extremities General upper extremity: Normal inspection, Nontender, Normal color, Normal ROM, Normal temperature General lower extremity: Normal inspection, Nontender, Normal color, Normal ROM, Normal temperature, Normal weight bearing. No: Lynsey's sign Ankle: Tender - Mild right ankle tenderness to palpation.. No: Abrasion, Deformity, Edema, Instability, Laceration - Neurological Neuro grossly intact: Yes Cognition: Normal Orientation: AAOx4 [place] Coma Scale Eye Opening: Spontaneous [place] Coma Scale Verbal: Oriented [place] Coma Scale Motor: Obeys Commands [place] Coma Scale Total: 15 Speech: Normal Motor strength normal: LUE, RUE, LLE, RLE Sensory: Normal - Psychological Associated symptoms: Normal affect, Normal mood - Skin Skin Temperature: Warm Skin Moisture: Dry Skin Color: Normal Course - Vital Signs Vital signs: Temp Pulse Resp BP Pulse Ox 97.9 F 84 18 139/81 H 97 08/30/18 01:54 08/30/18 01:54 08/30/18 01:54 08/30/18 01:54 08/30/18 01:54 - Diagnostic Test Radiology reviewed: Reports reviewed Discharge - Discharge Clinical Impression: Right ankle sprain Qualifiers: Encounter type: initial encounter Involved ligament of ankle: unspecified ligament Qualified Code(s): S93.401A - Sprain of unspecified ligament of right ankle, initial encounter Condition: Stable Disposition: HOME, SELF-CARE Instructions: Sprained Ankle ([facility]) Additional Instructions: Please follow-up with your primary doctor today. Avoid bearing weight on your right ankle onto the sprain is healed. Also follow-up with the orthopedic surgeon Dr. Monroe Narayanan. Call to make appointment to see him if your ankle continues to be painful. Return to the emergency room if your condition worsens. Prescriptions: Ibuprofen [Motrin 800 mg Tablet] 800 mg PO Q8H PRN #15 tablet PRN Reason: Pain Scale Of 3 Forms: Return to Work
--- NOTE | 2018-08-30 04:07 | RADIOLOGY REPORT (SQ) ---
EXAM DESCRIPTION: XR ANKLE 3 OR MORE VIEWS COMPLETED DATE/TME: 08/30/2018 03:05 CLINICAL HISTORY: 27 years Male, Pain COMPARISON: None. Findings: Bones, joints, and soft tissues of the RIGHT XR ANKLE 3 OR MORE VIEWS appear intact. IMPRESSION: No acute findings.
== END 2018-08-30 05:38 | disposition home or self-care (01) ==
LOC: ER 01:50
DX: S93.401A Sprain of unspecified ligament of right ankle, initial encounter (principal); M25.571 Pain in right ankle and joints of right foot; X50.1XXA Overexertion from prolonged static or awkward postures, initial encounter; F17.200 Nicotine dependence, unspecified, uncomplicated; J45.909 Unspecified asthma, uncomplicated
CPT/HCPCS: 99283

== ENCOUNTER 2018-10-23 17:49 | Emergency (ER) | payer SELFPAY ==
--- NOTE | 2018-10-23 18:26 | ER Document Report ---
ED Medical Screen (RME) - General Chief Complaint: Penile Problem Stated Complaint: PENILE PROBLEM Time Seen by Provider: 10/23/18 18:12 Mode of Arrival: Ambulatory Information source: Patient TRAVEL OUTSIDE OF THE [place] IN LAST 30 DAYS: No - HPI Patient complains to provider of: PENIS INJURY Notes: 10/23/18 18:24 Patient here with complaints of penile injury. He states that this morning he was having intercourse penis slipped out and then hit his partners pelvic bone. He states that he had sudden pain and his penis went limp. He was able to urinate without any significant trouble, is able to get an erection again and tried to have intercourse again but he immediately went limp. Patient states that now his scrotum is swollen he has some pain at the back of his scrotal area. No redness. He has been able to urinate. No other complaints. Exam No distress, nontoxic-appearing. Lungs clear and equal throughout. Heart sounds normal. No ecchymosis identified. Penis appears normal with no urethral blood. Scrotum appears to be generally swollen with no ecchymosis, erythema or tenderness. Testicular exam unremarkable. Plan CBC, CMP, urinalysis, scrotal ultrasound. Case was briefly discussed with Dr. Morin. An initial examination was made on the patient as part of the triage process, and it was determined a more comprehensive evaluation was necessary. Initial labs were ordered and patient was transferred to another provider in the ED who assumed care and finished evaluation and plan. - Related Data Allergies/Adverse Reactions: rondex Allergy (Mild, Uncoded 10/23/18 17:50) Past Medical History Pulmonary Medical History: Reports: Hx Asthma, Hx Bronchitis Renal/ Medical History: Reports: Hx Kidney Stones. Denies: Hx Peritoneal Dialysis Musculoskeltal Medical History: Reports Hx Musculoskeletal Deformity, Reports Hx Musculoskeletal Trauma Psychiatric Medical History: Reports: Hx Attention Deficit Hyperactivity Disorder Traumatic Medical History: Reports: Hx Fractures - right arm, Hx Traumatic Brain Injury Past Surgical History: Reports: Hx Abdominal Surgery - HERNIA, Hx Adenoidectomy, Hx Appendectomy, Hx Inguinal Hernia - right, Hx Neurologic Surgery, Hx Orthopedic Surgery, Hx Tonsillectomy - Immunizations Immunizations up to date: No Hx Diphtheria, Pertussis, Tetanus Vaccination: Yes Physical Exam - Vital signs Vitals: Temp Pulse Resp BP Pulse Ox 98.1 F 78 18 142/68 H 96 10/23/18 17:57 10/23/18 17:57 10/23/18 17:57 10/23/18 17:57 10/23/18 17:57 Course - Vital Signs Vital signs: Temp Pulse Resp BP Pulse Ox 98.1 F 78 18 142/68 H 96 10/23/18 17:57 10/23/18 17:57 10/23/18 17:57 10/23/18 17:57 10/23/18 17:57
[2018-10-23 19:07] LABS: APPEARANCE,URINE SLIGHTLY-CLOUDY; BILIRUBIN,URINE NEGATIVE (NEGATIVE); COLOR,URINE YELLOW; GLUCOSE, URINE NEGATIVE (NEGATIVE); KETONES,URINE NEGATIVE (NEGATIVE); LEUKOCYTE ESTERASE,URINE TRACE (NEGATIVE); NITRITE,URINE NEGATIVE (NEGATIVE); PROTEIN,URINE NEGATIVE (NEGATIVE); URINE SPECIFIC GRAVITY 1.023
[2018-10-23 19:10] LABS: ABSOLUTE EOSINOPHILS # (AUTO) 0.1 10^3/uL (0.0-0.6); ABSOLUTE LYMPHOCYTES (AUTO) 2.2 10^3/uL (0.5-4.7); ABSOLUTE MONOCYTES (AUTO) 0.5 10^3/uL (0.1-1.4); ABSOLUTE NEUT (AUTO) 5.4 10^3/uL (1.7-8.2); BASOPHILS % (AUTO) 0.6 % (0-2); EOSINOPHILS % (AUTO) 0.8 % (0-6); HEMOGLOBIN 15.3 g/dL (13.5-17.0); LYMPHOCYTES % (AUTO) 26.7 % (13-45); MEAN CORPUSCULAR HEMOGLOBIN 31.1 pg (27.0-33.4); MEAN CORPUSCULAR HGB CONC 34.6 g/dL (32.0-36.0); MEAN CORPUSCULAR VOLUME 90 fl (80-97); MONOCYTES % (AUTO) 5.7 % (3-13); PLATELET COUNT 138 10^3/uL (150-450); RED BLOOD COUNT 4.91 10^6/uL (4.35-5.55); RED CELL DISTRIBUTION WIDTH 13.1 % (11.5-14.0); SEGMENTED NEUTROPHILS % (AUTO) 66.2 % (42-78); TOTAL CELLS COUNTED % (AUTO) 100 %; WHITE BLOOD COUNT 8.2 10^3/uL (4.0-10.5)
--- NOTE | 2018-10-23 19:13 | RADIOLOGY REPORT (SQ) ---
EXAM DESCRIPTION: U/S SCROTUM W/DOPPLER COMPLETED DATE/TIME: 10/23/2018 7:01 pm REASON FOR STUDY: SWELLING COMPARISON: None. TECHNIQUE: Static and realtime linda scale imaging of the scrotum and testes. Selected color Doppler and spectral images recorded to document blood flow. LIMITATIONS: None. FINDINGS: RIGHT: TESTICLE: Normal size, 4.7 x 3.2 x 2.5 cm. Normal echotexture. Normal blood flow. No mass. EPIDIDYMIS: Normal, 10 mm. HYDROCELE OR VARICOCELE: No. HERNIA OR EXTRA-TESTICULAR MASS: No. OTHER: No other significant finding. LEFT: TESTICLE: Normal size, 4.9 x 3.2 x 2.6 cm. Normal echotexture. Normal blood flow. No mass. EPIDIDYMIS: Normal, 11 mm. HYDROCELE OR VARICOCELE: No. HERNIA OR EXTRA-TESTICULAR MASS: No. OTHER: There is some complex extratesticular material in the scrotal sac. Cannot exclude blood. IMPRESSION: The testes are normal. Each epididymis is normal. There is no evidence of torsion or o rchitis or epididymitis. Cannot exclude some blood in the scrotal sac. TECHNICAL DOCUMENTATION: JOB ID: [id number] [email or web address]- All Rights Reserved Reading location - IP/workstation name: [email or web address]
[2018-10-23 19:18] LABS: ALANINE AMINOTRANSFERASE 65 U/L (21-72); ALBUMIN 4.6 g/dL (3.5-5.0); ALKALINE PHOSPHATASE 77 U/L (38-126); ANION GAP 11 (5-19); ASPARTATE AMINO TRANSFERASE 35 U/L (17-59); BILIRUBIN,DIRECT 0.3 mg/dL (0.0-0.4); BILIRUBIN,TOTAL 1.9 mg/dL (0.2-1.3); BLOOD UREA NITROGEN 7 mg/dL (7-20); CALCIUM 10.3 mg/dL (8.4-10.2); CARBON DIOXIDE 28 mmol/L (22-30); CHLORIDE 104 mmol/L (98-107); GLUCOSE 87 mg/dL (75-110); POTASSIUM 4.8 mmol/L (3.6-5.0); SODIUM 142.7 mmol/L (137-145); TOTAL PROTEIN 7.9 g/dL (6.3-8.2)
[2018-10-23] MEDS ORDERED: IBUPROFEN 800 MG TABLET PO ONE (20:20)
--- NOTE | 2018-10-23 20:25 | ER Document Report ---
ED GI/ - General Chief Complaint: Penile Problem Stated Complaint: PENILE PROBLEM Time Seen by Provider: 10/23/18 18:12 Mode of Arrival: Ambulatory Notes: Patient is a 27 year old male that comes to the Emergency Department for chief complaint of injury to the penis/testicles/scrotum. He states that this morning while he was having intercourse his penis slipped out and then hit his partners pelvic bone. He states that he had sudden pain and then after the pain began his penis went limp. He states he "checked" and was able to urinate, he was then able to get an erection again, but then he had some pain again when he tried to have intercourse again and then again went limp. He denies pain in the penis/shaft, but he reports he has a swelling sensation and slight discomfort when he palpates the bottom or back of the scrotum area. He denies any other complaints. Past medical history includes right inguinal hernia repair and TBI. TRAVEL OUTSIDE OF THE [place] IN LAST 30 DAYS: No - Related Data Allergies/Adverse Reactions: rondex Allergy (Mild, Uncoded 10/23/18 17:50) Past Medical History - General Information source: Patient - Social History Smoking Status: Current Every Day Smoker Frequency of alcohol use: None Drug Abuse: None Lives with: Family Family History: Arthritis, CAD, Hyperlipidemia, Hypertension, Malignancy Patient has suicidal ideation: No Patient has homicidal ideation: No Pulmonary Medical History: Reports: Hx Asthma, Hx Bronchitis Renal/ Medical History: Reports: Hx Kidney Stones. Denies: Hx Peritoneal Dialysis Musculoskeletal Medical History: Reports Hx Musculoskeletal Deformity, Reports Hx Musculoskeletal Trauma Psychiatric Medical History: Reports: Hx Attention Deficit Hyperactivity Disorder Traumatic Medical History: Reports: Hx Fractures - right arm, Hx Traumatic Brain Injury Past Surgical History: Reports: Hx Abdominal Surgery - HERNIA, Hx Adenoidectomy, Hx Appendectomy, Hx Inguinal Hernia - right, Hx Neurologic Surgery, Hx Orthopedic Surgery, Hx Tonsillectomy - Immunizations Immunizations up to date: No Hx Diphtheria, Pertussis, Tetanus Vaccination: Yes Review of Systems - Review of Systems Constitutional: No symptoms reported EENT: No symptoms reported Cardiovascular: No symptoms reported Respiratory: No symptoms reported Gastrointestinal: No symptoms reported Genitourinary: See HPI Male Genitourinary: No symptoms reported Musculoskeletal: No symptoms reported Skin: No symptoms reported Hematologic/Lymphatic: No symptoms reported Neurological/Psychological: No symptoms reported Physical Exam - Vital signs Vitals: Temp Pulse Resp BP Pulse Ox 98.1 F 78 18 142/68 H 96 10/23/18 17:57 10/23/18 17:57 10/23/18 17:57 10/23/18 17:57 10/23/18 17:57 - Notes Notes: GENERAL: Alert, interacts well. No acute distress. HEAD: Normocephalic, atraumatic. EYES: Pupils equal, round, and reactive to light. Extraocular movements intact. ENT: Oral mucosa moist, tongue midline. Oropharynx unremarkable. Airway patent. NECK: Full range of motion. Supple. Trachea midline. LUNGS: Clear to auscultation bilaterally, no wheezes, rales, or rhonchi. No respiratory distress. HEART: Regular rate and rhythm. No murmur ABDOMEN: Soft, non-tender. Non-distended. Bowel sounds present in all 4 quadrants. GENITOURINARY: No signs of swelling or trauma. No erythema or severe tenderness . Minimal tenderness at the base and posterior aspect of the scrotum. Normal cremaster reflex. No discharge or bleeding at the head of the penis, nontender shaft. EXTREMITIES: Moves all 4 extremities spontaneously. No edema, normal radial and dorsalis pedis pulses bilaterally. No cyanosis. BACK: no cervical, thoracic, lumbar midline tenderness. No saddle anesthesia, normal distal neurovascular exam. NEUROLOGICAL: Alert and oriented x3. Normal speech. . PSYCH: Normal affect, normal mood. SKIN: Warm, dry, normal turgor. No rashes or lesions noted. Course - Re-evaluation Re-evalutation: On evaluation patient has mild tenderness at the base of the scrotum and at the scrotum posteriorly but not over the perineum. No overt testicular tenderness. Normal cremaster reflex, no signs of trauma to the shaft, examination does not show any bruising or overt signs of trauma. Patient is well-appearing. Patient reporting normal functioning with pain that is causing loss of erection. He does report a mild injury/trauma to the area. He is urinating normally. CBC, chemistry reviewed but no concerning findings were noted. Urinalysis nonspecific without obvious infection or overt hematuria. Ultrasound reviewed, this shows normal blood flow, no concerning findings except cannot exclude some blood in the scrotal sac. Discussed with patient and with Dr. Mehta. Patient is asking to leave, he states that he will wear supportive underwear, take anti-inflammatories, and follow-up with urology. I discussed this plan with Dr. Mehta, she states agreement with this plan and strict return precautions, patient states unde rstanding and agreement. - Vital Signs Vital signs: Temp Pulse Resp BP Pulse Ox 97.9 F 68 16 136/65 H 99 10/23/18 20:57 10/23/18 20:57 10/23/18 20:57 10/23/18 20:57 10/23/18 20:57 - Laboratory Result Diagrams: 10/23/18 18:28 10/23/18 18:28 Laboratory results interpreted by me: 10/23/18 10/23/18 10/23/18 18:28 18:28 18:28 Plt Count 138 L Calcium 10.3 H Total Bilirubin 1.9 H Urine Blood SMALL H Urine Urobilinogen 2.0 H Ur Leukocyte Esterase TRACE H Discharge - Discharge Clinical Impression: Testicular/scrotal pain Penis injury Qualifiers: Encounter type: initial encounter Qualified Code(s): S39.94XA - Unspecified injury of external genitals, initial encounter Condition: Stable Disposition: HOME, SELF-CARE Additional Instructions: Your urine, evaluation, and ultrasound do not indicate concerning injury. I recommend rest at least for the next several days, ice to the area, and the anti-inflammatory medication. Follow up with the Urologist referral listed below. Return for any concerning symptoms - increased swelling or pain, developing or spreading redness, bleeding from the penis, or any other concerning symptoms. [facility] [address] [place], [place] [id number] [facility] [address] [place], [place] [id number] Corby Carlos MD Doctor in [place], [place] Address: [address], [place] [address] Prescriptions: Ibuprofen [Motrin 600 mg Tablet] 600 mg PO Q6HP PRN #30 tablet PRN Reason:
[2018-10-23 20:59] VITALS: BP 136/65
== END 2018-10-23 20:59 | disposition home or self-care (01) ==
LOC: ER 17:49
DX: S39.94XA Unspecified injury of external genitals, initial encounter (principal); N50.82 Scrotal pain; X58.XXXA Exposure to other specified factors, initial encounter; Z87.442 Personal history of urinary calculi; F17.200 Nicotine dependence, unspecified, uncomplicated
CPT/HCPCS: 36415; 76870; 80053; 81001; 85025; 93976; 99284